=== PATIENT | female | born 1945 | race Caucasian/White ===

== ENCOUNTER 2016-12-03 08:17 | Inpatient (IN) | payer MEDICARE ==
[2016-12-03] VITALS (13 sets, daily range): BP systolic 103–170; BP diastolic 51–99; PULSE 71–100; RESP 14–26; O2SAT 88–97
[~2016-12-03] VITALS: Ht 162.6 cm; Wt 79.8 kg
--- NOTE | 2016-12-03 08:37 | ED.REPORT ---
HPI-Dyspnea / Wheezing Date of Service Dec 03, 2016 ED Provider: Nathan Fine MD The pt is a 71 y/o female w/ a hx of HTN and pneumonia presenting to the ED complaining of SOB onset two days ago. She was walking her dog and was only able to make it a portion of a block before she had to stop. She is also experiencing upper back "pressure", nausea, vomiting, chronic cough, and intermittent sweating and chills depending on how hard she is coughing. Sitting up, leaning forward, and breathing through her mouth allows her to breathe more easily. She is a smoker and does not use an inhaler or nebulizer. Denies chest pain, fevers, or peripheral edema. Nursing Notes Stated Complaint: DIFFICULTY BREATHING Nursing Notes Reviewed: Yes ([facility] not reconciled) Allergies: Coded Allergies: No Known Allergies (Unverified , 12/03/16) Scheduled Amlodipine (Amlodipine) 5 Mg Tablet 5 MG PO DAILY Aspirin (Aspirin) 81 Mg Tablet 81 MG PO DAILY Hydrochlorothiazide (Hydrochlorothiazide) 25 Mg Tablet 25 MG PO DAILY Lisinopril (Lisinopril) 40 Mg Tablet 40 MG PO DAILY Lovastatin (Lovastatin) 40 Mg Tablet 40 MG PO HS Metformin (Metformin) 500 Mg Tablet 500 MG PO BID Metoprolol Tartrate (Metoprolol Tartrate) 100 Mg Tablet 100 MG PO BID Omeprazole Magnesium (Prilosec Otc) 20 Mg Tablet.dr 20 MG PO DAILY General Time Seen by MD: 08:36 Chief Complaint Shortness of breath Hx Obtained From: Patient Arrived By: Walk-in Sudden in Onset?: Yes Onset Occurred: 2 days ago Symptom Duration: Since onset Recent Healthcare: No recent doctor visit, No recent hospitalization Similar Sx Previous: No Past Medical History Past Medical History Notes: Medication list: Metformin 500 mg daily Metoprolol tartrate 100 mg 2 times a day Lovastatin 40 mg daily Amlodipine 5 mg daily Lisinopril 40 mg daily Hydrochlorothiazide 25 mg daily Prilosec daily Aspirin 81 mg daily Past Medical History Ykj-[id number] diabetes Hypertension Hyperlipidemia Mild GERD Past Surgical History Denies: Gastric bypass, Pacemaker insertion Smoking History Current Every Day Smoker Social History Alcohol Use: "Social" Drug Use: Denies drug use Ambulatory Status Independent Review of Systems Constitutional: Reports: Chills, Denies: Fever Respiratory: Reports: Non-productive cough, Shortness of breath Cardiovascular: Denies: Chest pain, Edema Musculoskeletal: Reports: Back pain ("pressure") Skin: Reports Diaphoresis Complete sys rev & neg: except as marked. GI: Reports: Nausea, Vomiting Physical Exam Initial Vital Signs Vital Signs (First) Date Time Temp Pulse Resp B/P Pulse Ox O2 Delivery O2 Flow Rate FiO2 12/03/16 08:41 37.0 72 22 170/89 88 Room Air 12/03/16 09:01 3 Initial VS: Reviewed, Unavailable (none on chart, ordered) Head / Eyes: Atraumatic, Normocephalic, PERRL Abdomen / GI: Soft, Non-tender, No guarding, No rebound, No distention Back: No CVA tenderness Extremities: Vascular intact, Neuro intact, No swelling, No tenderness Skin: Warm, Dry, No cyanosis Neurologic: Alert, Oriented, Nonfocal Psychiatric: Mood/affect normal, Behavior normal, Normal thought content General/Constitutional: Awake, Alert Neck: Atraumatic, Supple, Full range of motion Respiratory / Chest: No chest tenderness, No chest wall deformity dyspneic at rest bronchospasms worse on right hacking cough Cardiovascular: Regular rhythm, Heart sounds NL Heart Rate / Rhythm: Positive: Tachycardia (Mild ) No peripheral edema ENT: Airway patent Interpretation & Diagnostics Lab Results Interpretation Result Diagram: 12/03/16 0835 12/03/16 0835 Test 12/03/16 08:35 White Blood Count 10.9th/mm3 (3.8-10.1) Red Blood Count 5.28mil/mm3 (3.90-5.20) Hemoglobin 14.8g/dL (12.0-15.6) Hematocrit 44.8% (35.0-46.0) Mean Corpuscular Volume 84.8fL (81-100) Mean Corpuscular Hemoglobin 28.0pg (27.0-35.0) Mean Corpuscular Hemoglobin Concent 33.0% (32.0-37.0) Red Cell Distribution Width 13.4% (12.3-15.4) Platelet Count 295bil/L (150-400) Neutrophils (%) (Auto) 68.7% (40-74) Lymphocytes (%) (Auto) 20.1% (14-46) Monocytes (%) (Auto) 8.3% (4-12) Eosinophils (%) (Auto) 2.2% (0-5) Basophils (%) (Auto) 0.6% (0-3) Hold Blue Top Tube Received (Received) Sodium Level 130mEq/L (134-144) Potassium Level 4.0mEq/L (3.5-5.2) Chloride Level 94mEq/L (97-108) Carbon Dioxide Level 20mmol/L (18-29) Blood Urea Nitrogen 12mg/dL (8-27) Creatinine 0.56mg/dL (0.57-1.00) Estimat Glomerular Filtration Rate 152mL/min (>59) Glucose Level 153mg/dL (60-99) Calcium Level 9.6mg/dL (8.5-10.1) Total Bilirubin 0.4mg/dL (0.0-1.2) Aspartate Amino Transf (AST/SGOT) 17U/L (0-50) Alanine Aminotransferase (ALT/SGPT) 15U/L (0-32) Alkaline Phosphatase 89U/L (25-165) Troponin T 0.010ug/L (0.0-0.011) Pro-B-Type Natriuretic Peptide 83.52pg/mL (0-301) Total Protein 8.0g/dL (6.4-8.4) Albumin 3.9g/dL (3.4-5.0) Hold Red Top Tube Received (Received) Hold [place] Top Tube Received (Received) Hold [place] Top Tube Received (Received) Lab Results Interpretation: CBC marginal leukocytosis CMP normal Blood cultures 2 pending Troponin negative BNP negative ECG Interpretation ECG Interpretation: Normal sinus rhythm rate of 70, no ischemic or dysrhythmic findings Time: 08:57 Interpreted by: ED physician X-Ray Chest Interpretation Chest Xray Interpretation: Impression: No acute findings View: Portable, 1 view Interpretation / Wet Read by: Wet read ED physician Re-Eval/Medical Decision Med Decision/Clinical Course This is a 71-year-old female lifelong smoker presents with increasing shortness of breath cough, and possible respiratory infection. She has not had definite fever, but reports chills and increasing shortness of breath she has noticed since Sunday. She has had increasing dyspnea on exertion, but also dyspnea at rest, has had to sleep up right, and has coughing and wheezing-both of which are new. She has never carried a diagnosis of asthma or COPD in the past, and has not been on nebulizer respiratory therapy. On exam the patient's clinically bronchospastic, slightly worse on the right with a hacking cough. She is tachypneic and dyspneic, but not hypoxic. She has no edema the legs, no findings of DVT/venous thromboembolism are evident on clinical exam. A portable chest x-ray is negative for lucila infiltrate. Given the profound bronchospasm and dyspnea the patient is treated with albuterol, Atrovent, steroids with some improvement. However she remains persistently bronchospastic , and persistently symptomatic with inadequate improvement to allow discharge. Lab work is fairly unremarkable, trace, nonspecific leukocytosis. Troponin, EKG , BNP are negative. The patient's very low probability for pulmonary embolism. Her coverage for pneumonia despite initial negative radiographs is being provided given the underlying concern for COPD, first time diagnosis-'s of the patient's receiving ceftriaxone and azithromycin. Patient is being admitted for continued management. Source of Hx: Old records Differential Diagnosis: Positive: COPD exacerbation, Negative: Acute coronary syndrome, Congestive heart failure, Dysrhythmia, Hypertensive emergency, Pneumothorax, Pulmonary embolism, Respiratory failure Discharge & Departure Impression: Primary Impression: Acute exacerbation of chronic obstructive pulmonary disease Disposition: ADMITTED TO HOSPITAL Discharge Condition All VS Reviewed: Yes Condition: Stable Referrals: James Wilson (PCP) Scribe Attestation Portions of this note were transcribed by Juan Antonio Zhong. I, Dr. Fine personally performed the history, physical exam and medical decision-making; I reviewed and confirmed the accuracy of the information in the transcribed note. Signed by : Faye Worrell, 12/03/16 and 1105. copies to: James Wilson Matthew F MD Dec 03, 2016 08:37 Juan Antonio Zhong Dec 03, 2016 11:02
[2016-12-03] MEDS ORDERED: Albuterol 2.5 mg/3 mL Inhalation Solution NEB ONE ×2 (08:50→10:05)
[2016-12-03] MEDS ORDERED: MethylprednisoLONE Sodium Succinate 62.5 mg/mL 2 mL Inj IVPUSH ONE (08:50)
[2016-12-03] MEDS ORDERED: Ipratropium 0.02% 0.5 mg/2.5 mL Inhalation Solution NEB ONE (08:50)
[2016-12-03 09:16] LABS: BASOPHILS % (AUTO) 0.6 % (0-3); EOSINOPHILS % (AUTO) 2.2 % (0-5); MONOCYTES % (AUTO) 8.3 % (4-12); Mean Corpuscular Volume 84.8 fL (81-100); NEUTROPHILS % (AUTO) 68.7 % (40-74); Platelet Count 295 bil/L (150-400)
--- NOTE | 2016-12-03 09:30 | DRSVH ---
PROCEDURE: X-RAY CHEST ONE VIEW, PORTABLE ([id number]) INDICATIONS: dyspnea TECHNIQUE: One view of the chest was acquired. COMPARISON: None. FINDINGS: Surgical changes and devices: There is external nonrebreather mass projecting over the left apex limi ting evaluation.. Lungs and pleura: No pleural effusions or pneumothorax. Visualized lungs are clear. Mediastinum: Mediastinal contours appear normal. Heart size is normal. Bones and chest wall: No suspicious bony lesions. Overlying soft tissues appear unremarkable. IMPRESSION: 1. No definite acute cardiopulmonary disease. Evaluation of the left apex limited by the overlying nonrebreather mask. Dictated by: Jarred Larson M.D. on 12/03/2016 at 9:20 Approved by: Jarred Larson M.D. on 12/03/2016 at 9:23
[2016-12-03 09:41] LABS: TROPONIN T 0.01 ug/L (0.0-0.011)
[2016-12-03] MEDS ORDERED: cefTRIAXone Inj 2,000 MG in Dextrose 5% Minibag Plus 50 ML IV ONE (10:35)
[2016-12-03] MEDS ORDERED: Azithromycin Inj 500 MG in Dextrose 5% w/Vial Mate 250 ML IV ONE (10:35)
[2016-12-03] MEDS ORDERED: 0.9% Sodium Chloride 1,000 ML IV SCH (12:01)
[2016-12-03] MEDS ORDERED: Ondansetron 2 mg/mL 2 mL Inj IVPUSH PRN ×2 (12:05→17:35)
[2016-12-03] MEDS ORDERED: Alum-Mag Hydrox-Simeth 30 mL Suspension PO PRN ×2 (12:05→17:35)
[2016-12-03 12:30] LABS: APPEARANCE,URINE CLEAR (CLEAR,HAZY); COLOR,URINE YELLOW (YELLOW); OCCULT BLOOD,URINE NEGATIVE (NEGATIVE); UROBILINOGEN,URINE NORMAL (NORMAL)
[2016-12-03] MEDS ORDERED: OMEP20TA24 PO (12:50)
[2016-12-03] MEDS ORDERED: METO100T3 PO (12:50)
[2016-12-03] MEDS ORDERED: HYDR25TA4 PO (12:50)
[2016-12-03] MEDS ORDERED: LISI40TA PO (12:50)
[2016-12-03] MEDS ORDERED: METF500T4 PO (12:50)
[2016-12-03] MEDS ORDERED: LOVA40TA PO (12:50)
[2016-12-03] MEDS ORDERED: ASPI-973 PO (12:50)
[2016-12-03] MEDS ORDERED: AMLO5TAB2 PO (12:50)
--- NOTE | 2016-12-03 15:22 | NUR ---
Admit: Patient arrived to [facility] via stretcher @ approx 1230. Transferred from stretcher to bed. Patient complains of shortness of breath and appears to be short of breath, O2 via NC @ 3L. VSS. IV antibiotics infusing. Alert & oriented. Denies pain, nausea. Bed in low and locked position, bed rails up x 2, oriented to room and call light system, call light within reach. Medication reconciliation completed. Telemetry #50 on, ST 100s, 70s-100s per television actor.
[2016-12-03] MEDS ORDERED: Polyethylene Glycol (PEG) 17 Gm Powder PO PRN (17:35)
[2016-12-03] MEDS ORDERED: Dextrose 10% 250 ML IV PRN (17:35)
[2016-12-03] MEDS ORDERED: HYDROcodone-APAP 5-325 mg Tablet PO PRN (17:35)
--- NOTE | 2016-12-03 17:55 | PCM.HPMED ---
Subjective Date of Service Dec 03, 2016 Primary Provider: Admitting Physician: Ann Barnett MD Primary Care Physician: Nick Avalos DO Attending Physician: Ann Barnett MD Chief Complaint: shortness of breath History of Present Illness: 71 y/o female w/ a hx of HTN and long standing and current cigarette smoking presents today with complaint of ongoing and worsening shortness of breath over the past 2 days. She first noticed her symptoms 2 days ago on Sunday when walking her dog and was only able to make it a portion of a block before she had to stop in order to catch her breath. Her shortness of breath has been getting worse and today she was having a hard time catching her breath just going to the bathroom and so decided to present to the hospital. She has chronic cough but it has been more productive of greenish to clear sputum over the past week or so. She tried to smoke yesterday but became quite nauseous and vomited once and so has not been able to smoke her regular pack/day for past couple of days. She has also noted increased wheezing with her shortness of breath and cough. She otherwise denies any chest pain, palpitations, lightheadedness, orthopnea, paroxysmal nocturnal dyspnea, weight gain, lower extremity edema or pain in her calf or legs. She denies any sick contacts or recent travel. She was recently diagnosed with diabetes and is currently on Metformin. 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 In the ED her lung exam was reported as notable for significant wheezing and as a result she received a dose IV Solu-Medrol and nebulizer treatment. Review of Systems: Constitutional: Negative, except as otherwise mentioned in the history above. Ophthalmologic: Negative, except as otherwise mentioned in the history above. Cardiovascular: Negative, except as otherwise mentioned in the history above. Respiratory: Negative, except as otherwise mentioned in the history above. Gastrointestinal: Negative, except as otherwise mentioned in the history above. Genitourinary: Negative, except as otherwise mentioned in the history above. Musculoskeletal: Negative, except as otherwise mentioned in the history above. Neurological: Negative, except as otherwise mentioned in the history above. Psychiatric: Negative, except as otherwise mentioned in the history above. Hematologic/Lymphatic: Negative, except as otherwise mentioned in the history above. Allergic/Immunologic: Negative, except as otherwise mentioned in the history above. Allergies Coded Allergies: No Known Allergies (Unverified , 12/03/16) Home Medications Amlodipine (Amlodipine) 5 Mg Tablet 5 MG PO DAILY Aspirin (Aspirin) 81 Mg Tablet 81 MG PO DAILY Hydrochlorothiazide (Hydrochlorothiazide) 25 Mg Tablet 25 MG PO DAILY Lisinopril (Lisinopril) 40 Mg Tablet 40 MG PO DAILY Lovastatin (Lovastatin) 40 Mg Tablet 40 MG PO HS Metformin (Metformin) 500 Mg Tablet 500 MG PO BID Metoprolol Tartrate (Metoprolol Tartrate) 100 Mg Tablet 100 MG PO BID Omeprazole Magnesium (Prilosec Otc) 20 Mg Tablet.dr 20 MG PO DAILY PMH Zqo-chjfmes-gcguubxcl diabetes Hypertension Hyperlipidemia Mild GERD Family History Diabetes in parents. Mother was a smoker and from pneumonia. A younger brother has coronary artery disease Social History Hx Alcohol Use: No Hx Substance Use: No Hx Tobacco Use: Yes Smoking Status: Current Every Day Smoker (1 ppd) Exam Vital Signs Vital Sign - Last Date Time Temp Pulse Resp B/P Pulse Ox O2 Delivery O2 Flow Rate FiO2 12/03/16 17:25 36.8 100 20 139/51 92 Nasal Cannula 2.00 General: Alert, Oriented X3, Cooperative, No Acute Distress Head: Normal Eyes: PERRLA, EOMI, Scleral Anicteric Nose: Mucous Membr Moist/[place] Mouth: Mucous Membr Moist/[place] Neck: Supple Chest & Lungs: Chest Wall Normal, Other (only very mild bilateral expiratory wheezes) Cardiovascular: Regular Rate/Rhythm Pulses: NL carotid, radial, femoral, DP, PT Abdomen: Non-tender, Non-distended, Normoactive bowel tones, Soft Extremities: No cyanosis/clubbing/edma bilat Skin: Other (no ulcer/rash) Neurological: Grossly Neurologically Intact, Cranial Nerves 2-12 Intact, Normal Speech Lymphatic: Other Lymph Nodes (no significant lymphadenopathy) Lab and Diagnostics Result Diagram: 12/03/1683412/03/16834 X-Rays, CTs and MRIs Date of Service: 12/03/16 0840 PROCEDURE: X-RAY CHEST ONE VIEW, PORTABLE ([id number]) IMPRESSION: 1. No definite acute cardiopulmonary disease. Evaluation of the left apex limited by the overlying nonrebreather mask. Dictated by: Jarred Larson M.D. on 12/03/2016 at 9:20 Approved by: Jarred Larson M.D. on 12/03/2016 at 9:23 Assessment & Plan 71 y/o female w/ a hx of HTN and long standing and current cigarette smoking presents today with complaint of ongoing and worsening shortness of breath over the past 2 days. # Acute shortness of breath with associated acute hypoxemia on room air, present on admission. - Strongly suspect underlying COPD in this long-time and ongoing smoker though not officially diagnosed in the past and now with acute COPD exacerbation on presentation - DuoNeb treatment qidwa - Will hold off on further IV steroid for now given lungs sound fairly clear on exam right now - Check respiratory PCR and rule out acute viral bronchitis as cause of presenting symptoms - Check Echo to rule out cardiac etiology for her reported dyspnea on exertion # History of hypertension. - Currently normotensive - Resume home BP Meds in am # History of diabetes mellitus - Hold Metformin - ISS while inpatient - HgA1C # History of hyperlipidemia - Continue with home statin # History of GERD, presumed stable - Continue with home dose PPI # Acute hyponatremia. present on admission - Likely due to dehydration - Followup repeat BMP in am after having received IVF in the ED Expected length of hospital stay is greater than 2 midnights and likely 2-3 days GI Prophylaxis: Proton Pump Inhibitor VTE Prophylaxis: Sub-Q Heparin (Unfractionated) VTE Mechanical Devices: Intermittant Pneumatic CD Resuscitation Status: DNR/DNI:Do Not Resuscitate/Intubate (discussed and verified with the patient) Time spent 60 min Huber Merino Dec 03, 2016 17:55
[2016-12-03] MEDS: Pantoprazole 20 mg ER24 Tablet PO SCH (18:11)
[2016-12-03] MEDS: Insulin Human REGular 300 Unit/3 mL Inj SUBQ SCH (21:05)
[2016-12-04] VITALS (11 sets, daily range): BP systolic 136–159; BP diastolic 64–85; PULSE 70–89; RESP 20–24; O2SAT 90–94
[2016-12-04] MEDS: Heparin 5,000 Unit/mL Inj SUBQ SCH ×3 (00:26→17:21)
--- NOTE | 2016-12-04 01:33 | NUR ---
O2 Pt on 2 L O2, pulse ox at 88%, turned up O2 to 3L. Pt sat at 92%. SOB with exertion, will monitor. Pt alert and oriented x 3.
[2016-12-04] MEDS: Pantoprazole 20 mg ER24 Tablet PO SCH (05:45)
[2016-12-04] MEDS: Albuterol-Ipratropium 3 mL Inhalation Solution NEB SCH ×3 (06:00→16:39)
[2016-12-04 06:53] LABS: BASOPHILS % (AUTO) 0 % (0-3); EOSINOPHILS % (AUTO) 0.1 % (0-5); MONOCYTES % (AUTO) 8.6 % (4-12); Mean Corpuscular Hemoglobin 28.2 pg (27.0-35.0); Mean Corpuscular Volume 84.4 fL (81-100); NEUTROPHILS % (AUTO) 80.8 % (40-74); Platelet Count 273 bil/L (150-400)
[2016-12-04 07:05] LABS: D-Dimer 2.12 mg/L FEU (<0.50); INR 0.98 ratio
[2016-12-04] MEDS: Insulin Human REGular 300 Unit/3 mL Inj SUBQ SCH ×4 (07:27→22:50)
[2016-12-04 07:33] LABS: Magnesium 1.6 mg/dL (1.6-2.6)
[2016-12-04] MEDS: MethylprednisoLONE Sodium Succinate 40 mg/mL Inj IVPUSH SCH ×2 (09:29→17:22)
--- NOTE | 2016-12-04 11:52 | NUR ---
Social Work-initial assessment: Data:See initial assessment. Pt is a 71 y/o female who was admitted on 12/03/16 for COPD exac per H&P. Pt's insurance is [employer] and PCP is Ly Avalos DO. EMR Reviewed. Pt's readmission score is 4-high risk. SW met with pt to discuss discharge planning, SW role explained. Pt is alert and oriented x3. Pt resides at home alone where she remains independent with ADLS. Pt drives and does not use any DME. Pt has no HH or SNF history. Pt has no [facility] care insurance or [facility] benefits. SW discussed DPOA/advanced directive, pt confirms she has completed this, SW encouraged a copy to be brought in. Pt confirms that her son Manan will provide transport at discharge. SW provided phone number and plan on white board in room. No anticipated discharge needs. SW will continue to follow if needs arise. Assessment:Pt who is independent at baseline. Plan:Pt to likely to discharge home when medically stable via POV. No anticipated discharge needs. SW will continue to follow if needs arise. FRANKLYN Blackmon Addendum: 12/04/16 at 1156 by STEFF BEAR Amended: Links added.
--- NOTE | 2016-12-04 12:35 | NUR ---
Off Unit: Patient transported to [facility] @ approx 1230 via wheelchair accompanied by transporter. magnetic resonance technologist notified. No apparent distress at time of transport.
--- NOTE | 2016-12-04 13:09 | DRSVH ---
PROCEDURE: CT ANGIO CHEST PULMONARY EMBOLISM ([id number]) INDICATIONS: 71 year-old female with shortness of breath. TECHNIQUE: After the administration of intravenous contrast, 2 mm thick sections acquired from the pulmonary api ronny to the posterior costophrenic angles. 3-dimensional maximum intensity projection (MIP) coronal a nd sagittal reformats were then acquired through the thorax. For radiation dose reduction, the follo wing was used: automated exposure control, adjustment of mA and/or kV according to patient size. COMPARISON: , CR, XR CHEST 1VW (PORTABLE), 12/03/2016, 8:53. FINDINGS: Image quality: Excellent. Pulmonary arteries: Pulmonary arteries are normal in size, and demonstrate no intraluminal filling d efects to suggest central pulmonary embolism. Lungs and pleura: No acute air space opacities. Bilateral upper lobe clustered micronodular opacities are noted in a tree in bud pattern on coronal reformatted images. No pleural effusions or pneumothor ax. Central and peripheral airways are patent. Mediastinum: Heart size is normal, without pericardial effusion. Enlarged pre-carinal lymph node me asures 1.4 cm in short axis dimensions. No additional mediastinal or hilar adenopathy by CT size crit eria. Thoracic aorta is normal in caliber and enhancement. Esophagus is normal in caliber, without hiatal hernia. Bones and chest wall: No suspicious bony lesions. Ribs and thoracic spine appear intact throughout. Thyroid gland is normal in size. No axillary or supraclavicular adenopathy. On axial image 58, th ere is asymmetric 1.6 cm soft tissue density within the lateral left breast. Abdomen: Visualized upper abdominal solid organs appear normal in the early arterial phase of enhanc ement. IMPRESSION: 1. No evidence for central pulmonary embolism. 2. Bilateral lateral upper lobe clustered micronodular opacities, in a pattern suggestive of early in fectious bronchiolitis. 3. Solitary enlarged precarinal mediastinal lymph node, a nonspecific finding. 4. Asymmetric 1.6 cm nodular soft tissue density within the lateral left breast may reflect underlyin g mass lesion. When clinically feasible, recommend outpatient bilateral diagnostic mammography with p ossible left breast ultrasound for further evaluation. Dictated by: John Denise M.D. on 12/04/2016 at 11:58 Approved by: John Denise M.D. on 12/04/2016 at 12:07
--- NOTE | 2016-12-04 15:45 | PCM.PNMED ---
Subjective Date of Service Dec 04, 2016 Subjective Reports continued shortness of breath and cough Exam Vital Signs Vital Sign - Last Date Time Temp Pulse Resp B/P Pulse Ox O2 Delivery O2 Flow Rate FiO2 12/04/16 13:18 70 12/04/16 12:59 24 90 Nasal Cannula 4.00 12/04/16 09:31 36.8 136/85 Intake and Output 12/03/16 12/03/16 12/04/16 Cumulative From/Thru 15:00 23:00 07:00 12/03/16 08:41 - 12/04/16 06:32 Intake Total 238 ml 1550 ml 250 ml 2038 ml Output Total 800 ml 800 ml Balance 238 ml 1550 ml -550 ml 1238 ml Intake Oral 1000 ml 250 ml 1250 ml IV Total 238 ml 550 ml 788 ml Output Urine Total 800 ml 800 ml # Voids 2 2 # Bowel Movements 1 1 Exam General: Alert, Oriented X3, Cooperative, No Acute Distress Head: Normal Eyes: PERRLA, EOMI, Scleral Anicteric Nose: Mucous Membr Moist/[place] Mouth: Mucous Membr Moist/[place] Neck: Supple Chest & Lungs: Chest Wall Normal, Moderate bilateral inspiratory/expiratory wheezes (much worse than admission day) Cardiovascular: Regular Rate/Rhythm Pulses: NL carotid, radial, femoral, DP, PT Abdomen: Non-tender, Non-distended, Normoactive bowel tones, Soft Extremities: No cyanosis/clubbing/edema bilat Neurological: Grossly Neurologically Intact, Cranial Nerves 2-12 Intact, Normal Speech IVs and Medications Medications Reviewed: Medications were reviewed in detail Lab and Diagnostics Result Diagram: 12/04/16 0620 12/04/16 0620 X-Rays, CTs and MRIs Date of Service: 12/03/16 0840 PROCEDURE: X-RAY CHEST ONE VIEW, PORTABLE ([id number]) IMPRESSION: 1. No definite acute cardiopulmonary disease. Evaluation of the left apex limited by the overlying nonrebreather mask. Dictated by: Jarred Larson M.D. on 12/03/2016 at 9:20 Approved by: Jarred Larson M.D. on 12/03/2016 at 9:23 Date of Service: 12/04/16 0842 PROCEDURE: CT ANGIO CHEST PULMONARY EMBOLISM ([id number]) IMPRESSION: 1. No evidence for central pulmonary embolism. 2. Bilateral lateral upper lobe clustered micronodular opacities, in a pattern suggestive of early infectious bronchiolitis. 3. Solitary enlarged precarinal mediastinal lymph node, a nonspecific finding. 4. Asymmetric 1.6 cm nodular soft tissue density within the lateral left breast may reflect underlying mass lesion. When clinically feasible, recommend outpatient bilateral diagnostic mammography with possible left breast ultrasound for further evaluation. Dictated by: John Denise M.D. on 12/04/2016 at 11:58 Approved by: John Denise M.D. on 12/04/2016 at 12:07 Assessment & Plan 71 y/o female w/ a hx of HTN and long standing and current cigarette smoking presents today with complaint of ongoing and worsening shortness of breath over the past 2 days. # Acute shortness of breath with associated acute hypoxemia on room air, present on admission. - Strongly suspect underlying COPD in this long-time and ongoing smoker though not officially diagnosed in the past and now with acute COPD exacerbation on presentation - DuoNeb treatment qidwa - IV Solu-Medrol tid - Followup pending Echo to rule out cardiac etiology for her reported dyspnea on exertion - CTA chest without PE # Acute Rhinovirus bronchitis, present on admission. Ongoing - Continue with supportive care # History of hypertension. - Currently normotensive - Continue home BP Meds # History of diabetes mellitus - Hold Metformin - ISS while inpatient - HgA1C # History of hyperlipidemia - Continue with home statin # History of GERD, presumed stable - Continue with home dose PPI # Acute hyponatremia. present on admission - Likely due to dehydration and HCTZ - Hold HCTZ - Followup repeat BMP Dispo: 1-2 days GI Prophylaxis: Proton Pump Inhibitor VTE Prophylaxis: Sub-Q Heparin (Unfractionated) VTE Mechanical Devices: Intermittant Pneumatic CD Resuscitation Status: DNR/DNI:Do Not Resuscitate/Intubate (discussed and verified with the patient) Huber Merino Dec 04, 2016 15:45
--- NOTE | 2016-12-04 16:47 | DRSVH ---
[facility] [address] [place] [address] Echocardiogram Report Name: NING WATTERS Date: 12/04/2016 Height: 64 in Hospital Exam Location: [facility] Weight: 175 lb Gender: Female BSA: 1.8 m2 : 1945 Age: 71 yrs BP: 158/64 mmHg Reason For Study: Dyspnea on exertion Ordering Physician: Performed By: Rubi COPELANDIST [facility] Interpretation Summary There is normal left ventricular wall thickness. The ejection fraction is estimated to be 60-65%. Assessment of diastolic parameters indicates a relaxation abnormality of the left ventricle, consistent with normal filling pressures. There is no significant valvular heart disease. Procedure: A two-dimensional transthoracic echocardiogram with color flow and Doppler was performed. The study quality was technically adequate. Most of the acoustic windows were suboptimal, but the best imaging was obtained from the apical window. There is no prior echocardiogram noted for this patient. The patient was in normal sinus rhythm during the exam. Left Ventricle: The left ventricle is normal in size. There is normal left ventricular wall thickness. The ejection fraction is estimated to be 60-65%. There are no focal wall motion abnormalities. Assessment of diastolic parameters indicates a relaxation abnormality of the left ventricle, consistent with normal filling pressures. Right Ventricle: The right ventricle is normal in size and function. Atria: Both atria are normal in size. There is no Doppler evidence for an interatrial shunt. Mitral Valve: The mitral valve leaflets are slightly calcified. There is trace mitral regurgitation. Aortic Valve: The aortic valve is not well visualized. There is no hemodynamically significant valvular aortic stenosis. No aortic regurgitation is present. Tricuspid Valve: The tricuspid valve is not well visualized, but is grossly normal. Pulmonary artery pressures cannot be estimated because of the lack of a measurable TR jet velocity. Pulmonic Valve: The pulmonic valve is not well visualized. There is a trace or physiologic amount of pulmonic regurgitation. Great Vessels: The aortic root is normal size. The ascending aorta is normal in size. The aortic arch could not be visualized. The IVC is of normal diameter and collapses less than 50% with a sniff. This suggests a right atrial pressure of 8 mm Hg. Pericardium/ Pleura There is an anterior echo-free space consistent with a fat pad. There is no pericardial effusion. MMode/2D Measurements & Calculations LVIDd: 4.5 cm LA dimension RA long axis LVOT diam EPSS: 0.16 cm IVSd: 0.89 cm LA A2 area RA area Ao root diam LVPWd: 0.81 cm : 16.3 cm asc Aorta Diam LA A4 area RA vol: 40.4 ml RA LA length (vol) : 21.9 mm2 LA vol: 47.6 ml LA vol index IVC diam: 2.1 cm LV calderon. diameter/BSA RVD1 (basal) TAPSE: 2.7 cm (cm/m^2): 2.4 Doppler Measurements & Calculations Ao V2 max MV E max addison MV E/A: 0.81 PA V2 max : 210.2 cm/sec : 99.4 cm/sec Med Peak E' Addison : 97.3 cm/sec Ao max PG MV A max addison PA mean PG : 17.7 mmHg : 122.0 cm/sec E/E' med: 13.1 Ao mean PG MV P1/2t: 54.2 msec Lat Peak E' Addison PA Accel Time : 0.13 sec LVOT Max Addison E/E' lat: 13.0 : 152.7 cm/sec E/e' average NIKOLAI(I,D): 1.5 cm sev ratio MV dec time MV P1/2t max addison Ao V2 mean LV V1 max PG : 0.19 sec : 148.1 cm/sec MVA(P1/2t): 4.1 cm2 Ao V2 VTI: 44.8 cm LV V1 VTI NIKOLAI(V,D): 1.6 cm2 : 30.2 cm PA V2 mean NIKOLAI indexed to BSA : 64.8 cm/sec (cm^2/m^2): 0.79 Electronically signed by: Joshua Viera on Reading Physician:12/04/2016 04:46 PM
[2016-12-04] MEDS ORDERED: Albuterol-Ipratropium 3 mL Inhalation Solution NEB SCH (20:30)
[2016-12-05] VITALS (12 sets, daily range): BP systolic 120–164; BP diastolic 61–80; PULSE 58–88; RESP 19–24; O2SAT 87–96
[2016-12-05] MEDS: Heparin 5,000 Unit/mL Inj SUBQ SCH ×3 (00:10→16:53)
[2016-12-05] MEDS: MethylprednisoLONE Sodium Succinate 40 mg/mL Inj IVPUSH SCH ×2 (00:10→07:34)
--- NOTE | 2016-12-05 02:10 | NUR ---
activity Pt remained in room for the shift, alert and oriented x 4, pleasant and cooperative. No complaints of pain or discomfort, continues to be SOB with exertion, on 3L O2 nc. Given 60 mg solu medrol, pt sleeping well at this time, will continue to monitor.
[2016-12-05] MEDS: Pantoprazole 20 mg ER24 Tablet PO SCH (06:00)
[2016-12-05] MEDS: Insulin Human REGular 300 Unit/3 mL Inj SUBQ SCH ×4 (07:34→20:49)
[2016-12-05] MEDS: Albuterol-Ipratropium 3 mL Inhalation Solution NEB SCH ×4 (08:16→20:54)
[2016-12-05] MEDS: predniSONE 20 mg Tablet PO SCH (13:59)
--- NOTE | 2016-12-05 14:20 | NUR ---
CEFERINO signed @ 1124 AM
--- NOTE | 2016-12-05 16:06 | PCM.PNMED ---
Subjective Date of Service Dec 05, 2016 Subjective says feeling "much better" than yesterday Exam Vital Signs Vital Sign - Last Date Time Temp Pulse Resp B/P Pulse Ox O2 Delivery O2 Flow Rate FiO2 12/05/16 14:08 Supplement Oxygen 12/05/16 13:19 36.3 73 20 149/66 91 3.00 Intake and Output 12/04/16 12/04/16 12/05/16 Cumulative From/Thru 15:00 23:00 07:00 12/03/16 08:41 - 12/05/16 06:06 Intake Total 1111 ml 200 ml 3349 ml Output Total 1000 ml 800 ml 2600 ml Balance 111 ml -600 ml 749 ml Intake Oral 1111 ml 200 ml 2561 ml IV Total 788 ml Output Urine Total 1000 ml 800 ml 2600 ml # Voids 2 # Bowel Movements 0 0 1 Exam General: Alert, Oriented X3, Cooperative, No Acute Distress Head: Normal Eyes: PERRLA, EOMI, Scleral Anicteric Nose: Mucous Membr Moist/[place] Mouth: Mucous Membr Moist/[place] Neck: Supple Chest & Lungs: Chest Wall Normal, Mild bilateral inspiratory/expiratory wheezes (much improved than yesterday) Cardiovascular: Regular Rate/Rhythm Pulses: NL carotid, radial, femoral, DP, PT Abdomen: Non-tender, Non-distended, Normoactive bowel tones, Soft Extremities: No cyanosis/clubbing/edema bilat Neurological: Grossly Neurologically Intact, Cranial Nerves 2-12 Intact, Normal Speech IVs and Medications Medications Reviewed: Medications were reviewed in detail Lab and Diagnostics Result Diagram: 12/04/1661912/04/16 0620 X-Rays, CTs and MRIs Date of Service: 12/03/16 0840 PROCEDURE: X-RAY CHEST ONE VIEW, PORTABLE ([id number]) IMPRESSION: 1. No definite acute cardiopulmonary disease. Evaluation of the left apex limited by the overlying nonrebreather mask. Dictated by: Jarred Larson M.D. on 12/03/2016 at 9:20 Approved by: Jarred Larson M.D. on 12/03/2016 at 9:23 Date of Service: 12/04/16 0842 PROCEDURE: CT ANGIO CHEST PULMONARY EMBOLISM ([id number]) IMPRESSION: 1. No evidence for central pulmonary embolism. 2. Bilateral lateral upper lobe clustered micronodular opacities, in a pattern suggestive of early infectious bronchiolitis. 3. Solitary enlarged precarinal mediastinal lymph node, a nonspecific finding. 4. Asymmetric 1.6 cm nodular soft tissue density within the lateral left breast may reflect underlying mass lesion. When clinically feasible, recommend outpatient bilateral diagnostic mammography with possible left breast ultrasound for further evaluation. Dictated by: John Denise M.D. on 12/04/2016 at 11:58 Approved by: John Denise M.D. on 12/04/2016 at 12:07 Assessment & Plan 71 y/o female w/ a hx of HTN and long standing and current cigarette smoking presents today with complaint of ongoing and worsening shortness of breath over the past 2 days. # Acute shortness of breath with associated acute hypoxemia on room air, present on admission. - Strongly suspect underlying COPD in this long-time and ongoing smoker though not officially diagnosed in the past and now with acute COPD exacerbation on presentation - DuoNeb treatment qidwa - IV Solu-Medrol change to PO Prednisone on 12/05 - Echo unremarkable - CTA chest without PE # Acute Rhinovirus bronchitis, present on admission. Ongoing - Continue with supportive care # History of hypertension. - Currently normotensive - Continue home BP Meds # History of diabetes mellitus - Hold Metformin - ISS while inpatient - HgA1C # History of hyperlipidemia - Continue with home statin # History of GERD, presumed stable - Continue with home dose PPI # Acute hyponatremia. present on admission - Likely due to dehydration and HCTZ - Hold HCTZ - Followup repeat BMP # CTA chest notable for: "4. Asymmetric 1.6 cm nodular soft tissue density within the lateral left breast may reflect underlying mass lesion. When clinically feasible, recommend outpatient bilateral diagnostic mammography with possible left breast ultrasound for further evaluation." Dispo: 1-2 days GI Prophylaxis: Proton Pump Inhibitor VTE Prophylaxis: Sub-Q Heparin (Unfractionated) VTE Mechanical Devices: Intermittant Pneumatic CD Resuscitation Status: DNR/DNI:Do Not Resuscitate/Intubate (discussed and verified with the patient) Huber Merino Dec 05, 2016 16:06
[2016-12-06] VITALS (15 sets, daily range): BP systolic 136–173; BP diastolic 67–77; PULSE 64–77; RESP 20–22; O2SAT 89–95
[2016-12-06] MEDS: Heparin 5,000 Unit/mL Inj SUBQ SCH ×3 (00:30→17:37)
[2016-12-06] MEDS: Albuterol-Ipratropium 3 mL Inhalation Solution NEB SCH ×6 (00:32→19:42)
[2016-12-06] MEDS: Insulin Human REGular 300 Unit/3 mL Inj SUBQ SCH ×4 (07:30→22:08)
[2016-12-06] MEDS: Pantoprazole 20 mg ER24 Tablet PO SCH (07:53)
[2016-12-06] MEDS: predniSONE 20 mg Tablet PO SCH (08:58)
--- NOTE | 2016-12-06 13:09 | NUR ---
Hypertension/sats Pt. having elevated BP, reading 173/77, 159/67, 168/68, with last one being manually taken. Sats also dropped to 89% on 2L. Pt. 's oxygen increased to 3L. Pt. also reported to bathing self and "getting up and down, increasing strength so that I can go home." Pt. encouraged to rest in bed, do active ROM and to do breathing exercises at rest. Dr. Cabrales notified of these results; no new orders given at this time. Will continue to monitor.
--- NOTE | 2016-12-06 14:09 | NUR ---
Social Work-readiness for discharge: Data:EMR reviewed. Pt is on day 3 of hospitalization for COPD exacerbation per H&P. Pt is not medically stable anticipate tomorrow. Pt has been up ambulating in her room, but pt still remains on O2. Pt does not use O2 at baseline, RN to work on weaning pt. Pt's family to provide transport home at discharge. No anticipated discharge needs. SW will continue to follow if needs arise. Assessment:Pt who is independent at baseline. Plan:Pt to discharge home when medically stable via POV.No anticipated discharge needs. SW will continue to follow if needs arise. FRANKLYN Blackmon
--- NOTE | 2016-12-06 16:05 | PCM.PNMED ---
Subjective Date of Service Dec 06, 2016 Subjective says feeling "much better" but still with SOB on ambulation Exam Vital Signs Vital Sign - Last Date Time Temp Pulse Resp B/P Pulse Ox O2 Delivery O2 Flow Rate FiO2 12/06/16 12:42 36.8 73 22 159/77 89 Nasal Cannula 3.00 Intake and Output 12/05/16 12/05/16 12/06/16 Cumulative From/Thru 14:59 22:59 06:59 12/03/16 08:41 - 12/06/16 06:40 Intake Total 1612 ml 250 ml 5211 ml Output Total 650 ml 1400 ml 4650 ml Balance 962 ml -1150 ml 561 ml Intake Oral 1612 ml 250 ml 4423 ml IV Total 788 ml Output Urine Total 650 ml 1400 ml 4650 ml # Voids 2 # Bowel Movements 0 1 Exam General: Alert, Oriented X3, Cooperative, No Acute Distress Head: Normal Eyes: PERRLA, EOMI, Scleral Anicteric Nose: Mucous Membr Moist/[place] Mouth: Mucous Membr Moist/[place] Neck: Supple Chest & Lungs: Chest Wall Normal, Mild bilateral inspiratory/expiratory wheezes Cardiovascular: Regular Rate/Rhythm Pulses: NL carotid, radial, femoral, DP, PT Abdomen: Non-tender, Non-distended, Normoactive bowel tones, Soft Extremities: No cyanosis/clubbing/edema bilat Neurological: Grossly Neurologically Intact, Cranial Nerves 2-12 Intact, Normal Speech IVs and Medications Medications Reviewed: Medications were reviewed in detail Lab and Diagnostics Result Diagram: 12/04/1661912/06/16 0640 X-Rays, CTs and MRIs Date of Service: 12/03/16 0840 PROCEDURE: X-RAY CHEST ONE VIEW, PORTABLE ([id number]) IMPRESSION: 1. No definite acute cardiopulmonary disease. Evaluation of the left apex limited by the overlying nonrebreather mask. Dictated by: Jarred Larson M.D. on 12/03/2016 at 9:20 Approved by: Jarred Larson M.D. on 12/03/2016 at 9:23 Date of Service: 12/04/16 0842 PROCEDURE: CT ANGIO CHEST PULMONARY EMBOLISM ([id number]) IMPRESSION: 1. No evidence for central pulmonary embolism. 2. Bilateral lateral upper lobe clustered micronodular opacities, in a pattern suggestive of early infectious bronchiolitis. 3. Solitary enlarged precarinal mediastinal lymph node, a nonspecific finding. 4. Asymmetric 1.6 cm nodular soft tissue density within the lateral left breast may reflect underlying mass lesion. When clinically feasible, recommend outpatient bilateral diagnostic mammography with possible left breast ultrasound for further evaluation. Dictated by: John Denise M.D. on 12/04/2016 at 11:58 Approved by: John Denise M.D. on 12/04/2016 at 12:07 Assessment & Plan 71 y/o female w/ a hx of HTN and long standing and current cigarette smoking presents today with complaint of ongoing and worsening shortness of breath over the past 2 days. # Acute shortness of breath with associated acute hypoxemia on room air, present on admission. - Strongly suspect underlying COPD in this long-time and ongoing smoker though not officially diagnosed in the past and now with acute COPD exacerbation on presentation - DuoNeb treatment qidwa - IV Solu-Medrol change to PO Prednisone on 12/05 - Echo unremarkable - CTA chest without PE # Acute Rhinovirus bronchitis, present on admission. Ongoing - Continue with supportive care # History of hypertension. - Currently normotensive - Continue home BP Meds # History of diabetes mellitus - Hold Metformin - ISS while inpatient - HgA1C 6.4 # History of hyperlipidemia - Continue with home statin # History of GERD, presumed stable - Continue with home dose PPI # Acute hyponatremia. present on admission. improving - Likely due to dehydration and HCTZ - Hold HCTZ - Followup repeat BMP # CTA chest notable for: "4. Asymmetric 1.6 cm nodular soft tissue density within the lateral left breast may reflect underlying mass lesion. When clinically feasible, recommend outpatient bilateral diagnostic mammography with possible left breast ultrasound for further evaluation." Dispo: 1-2 days GI Prophylaxis: Proton Pump Inhibitor VTE Prophylaxis: Sub-Q Heparin (Unfractionated) VTE Mechanical Devices: Intermittant Pneumatic CD Resuscitation Status: DNR/DNI:Do Not Resuscitate/Intubate (discussed and verified with the patient) Huber Merino Dec 06, 2016 16:05
[2016-12-07] VITALS (9 sets, daily range): BP systolic 136–178; BP diastolic 61–83; PULSE 60–80; RESP 20; O2SAT 88–96
[2016-12-07] MEDS: Heparin 5,000 Unit/mL Inj SUBQ SCH ×3 (00:13→16:46)
[2016-12-07 06:02] LABS: Mean Corpuscular Hemoglobin 28.2 pg (27.0-35.0); Mean Corpuscular Volume 85.1 fL (81-100)
[2016-12-07] MEDS: Albuterol-Ipratropium 3 mL Inhalation Solution NEB SCH ×2 (06:30→12:01)
[2016-12-07] MEDS: Pantoprazole 20 mg ER24 Tablet PO SCH (06:36)
[2016-12-07] MEDS: Insulin Human REGular 300 Unit/3 mL Inj SUBQ SCH ×4 (07:30→21:22)
[2016-12-07] MEDS: predniSONE 20 mg Tablet PO SCH ×2 (10:27→17:59)
--- NOTE | 2016-12-07 17:19 | PCM.PNMED ---
Subjective Date of Service Dec 07, 2016 Subjective reports continued SOB Exam Vital Signs Vital Sign - Last Date Time Temp Pulse Resp B/P Pulse Ox O2 Delivery O2 Flow Rate FiO2 12/07/16 16:58 Supplement Oxygen 12/07/16 13:28 36.3 64 20 165/61 88 12/07/16 12:01 2.00 Intake and Output 12/06/16 12/06/16 12/07/16 Cumulative From/Thru 15:00 23:00 07:00 12/03/16 08:41 - 12/07/16 06:27 Intake Total 2458 ml 380 ml 8049 ml Output Total 2200 ml 1150 ml 8000 ml Balance 258 ml -770 ml 49 ml Intake Oral 2458 ml 380 ml 7261 ml IV Total 788 ml Output Urine Total 2200 ml 1150 ml 8000 ml # Voids 2 # Bowel Movements 0 1 Exam General: Alert, Oriented X3, Cooperative, No Acute Distress Head: Normal Eyes: PERRLA, EOMI, Scleral Anicteric Nose: Mucous Membr Moist/[place] Mouth: Mucous Membr Moist/[place] Neck: Supple Chest & Lungs: Chest Wall Normal, Mild bilateral inspiratory/expiratory wheezes Cardiovascular: Regular Rate/Rhythm Pulses: NL carotid, radial, femoral, DP, PT Abdomen: Non-tender, Non-distended, Normoactive bowel tones, Soft Extremities: No cyanosis/clubbing/edema bilat Neurological: Grossly Neurologically Intact, Cranial Nerves 2-12 Intact, Normal Speech IVs and Medications Medications Reviewed: Medications were reviewed in detail Lab and Diagnostics Result Diagram: 12/07/16 0545 12/07/16 0545 X-Rays, CTs and MRIs Date of Service: 12/03/16 0840 PROCEDURE: X-RAY CHEST ONE VIEW, PORTABLE ([id number]) IMPRESSION: 1. No definite acute cardiopulmonary disease. Evaluation of the left apex limited by the overlying nonrebreather mask. Dictated by: Jarred Larson M.D. on 12/03/2016 at 9:20 Approved by: Jarred Larson M.D. on 12/03/2016 at 9:23 Date of Service: 12/04/16 0842 PROCEDURE: CT ANGIO CHEST PULMONARY EMBOLISM ([id number]) IMPRESSION: 1. No evidence for central pulmonary embolism. 2. Bilateral lateral upper lobe clustered micronodular opacities, in a pattern suggestive of early infectious bronchiolitis. 3. Solitary enlarged precarinal mediastinal lymph node, a nonspecific finding. 4. Asymmetric 1.6 cm nodular soft tissue density within the lateral left breast may reflect underlying mass lesion. When clinically feasible, recommend outpatient bilateral diagnostic mammography with possible left breast ultrasound for further evaluation. Dictated by: John Denise M.D. on 12/04/2016 at 11:58 Approved by: John Denise M.D. on 12/04/2016 at 12:07 Assessment & Plan 71 y/o female w/ a hx of HTN and long standing and current cigarette smoking presents today with complaint of ongoing and worsening shortness of breath over the past 2 days. # Acute respiratory failure with hypoxia, present on admission. Improving - Strongly suspect underlying COPD in this long-time and ongoing smoker though not officially diagnosed in the past and now with acute COPD exacerbation on presentation - DuoNeb treatment - IV Solu-Medrol change to PO Prednisone on 12/05 - Echo unremarkable - CTA chest without PE - Start Azithromycin - Increase PO prednisone to 60mg BID on 12/07/16 - Budesonide 0.5mg nebulized BID started on 12/07/16 # Acute Rhinovirus bronchitis, present on admission. Ongoing - Continue with supportive care # History of hypertension. - Currently normotensive - Continue home BP Meds # History of diabetes mellitus - Hold Metformin - ISS while inpatient - HgA1C 6.4 # History of hyperlipidemia - Continue with home statin # History of GERD, presumed stable - Continue with home dose PPI # Acute hyponatremia. present on admission. improving - Likely due to dehydration and HCTZ - Hold HCTZ - Followup repeat BMP # CTA chest notable for: "4. Asymmetric 1.6 cm nodular soft tissue density within the lateral left breast may reflect underlying mass lesion. When clinically feasible, recommend outpatient bilateral diagnostic mammography with possible left breast ultrasound for further evaluation." # Acute leukocytosis - Likely reactive and also due to steroids - Followup Dispo: 1-2 days GI Prophylaxis: Proton Pump Inhibitor VTE Prophylaxis: Sub-Q Heparin (Unfractionated) VTE Mechanical Devices: Intermittant Pneumatic CD Resuscitation Status: DNR/DNI:Do Not Resuscitate/Intubate (discussed and verified with the patient) Huber Merino Dec 07, 2016 17:19
--- NOTE | 2016-12-07 18:30 | NUR ---
O2 Needs/SOB Per report, pt titrated on O2 NC to 1L, Satting at 95% in the early AM. During morning shift, pt reports coughing and increased SOB at rest. Pt satting in mid to low 80s on 1L NC. Increased O2 to 3L for comfort and SpO2 increased to 90%. Pt continues to report SOB. Pt took a shower in the morning, reports feeling very tired and SOB but able to tolerated activity if moving slowly. Multiple attempts to titrate O2 during shift - pt currently at 2L NC with SpO2 at 90%. Continues to report mild SOB and limiting activity as tolerated. Continuous Pulse Ox in place for close monitoring.
[2016-12-07] MEDS: Budesonide 0.5 mg/2 mL Inhalation Solution NEB SCH (20:27)
[2016-12-07] MEDS: Albuterol-Ipratropium 3 mL Inhalation Solution NEB PRN (20:28)
[2016-12-08] VITALS (8 sets, daily range): BP systolic 145–176; BP diastolic 70–80; PULSE 63–92; RESP 18–20; O2SAT 84–93
[2016-12-08] MEDS: Heparin 5,000 Unit/mL Inj SUBQ SCH ×4 (00:29→23:49)
[2016-12-08] MEDS: Pantoprazole 20 mg ER24 Tablet PO SCH (07:02)
[2016-12-08] MEDS: Insulin Human REGular 300 Unit/3 mL Inj SUBQ SCH ×4 (07:30→20:58)
[2016-12-08] MEDS: Budesonide 0.5 mg/2 mL Inhalation Solution NEB SCH ×2 (09:03→20:37)
[2016-12-08] MEDS: Albuterol-Ipratropium 3 mL Inhalation Solution NEB PRN ×4 (09:04→20:37)
[2016-12-08] MEDS: predniSONE 20 mg Tablet PO SCH ×2 (09:40→17:54)
--- NOTE | 2016-12-08 11:00 | NUR ---
Social Work: Readiness for d/c Data: Pt is on day 5 of hospitalization. EMR reviewed, pt discussed in rounds. MD states pt likely to d/c in 1-2 days once O2 is back to baseline. No d/c planning needs at this time. SAND MILLER will continue to follow if needs arise. Assessment: Pt who is independent at baseline. Plan: Pt will d/c home via POV when medically stable, likely in 1-2 days per MD. No d/c planning needs at this time. SAND MILLER will continue to follow if needs arise. FRANKLYN Saavedra
--- NOTE | 2016-12-08 13:54 | NUR ---
pt's o2 sats drop quickly with any amount of activity. Today she was 85% at rest on room air. . O2 @ 2 LITERS and her O2 SATS WERE 91% at rest with slow ambulation done inside pts room for appx 7 minutes she required O2 at 4 liters and was unable to maintain o2 sats higher than 88 % . at 5 liters she was 89% she then needed to sit down, pt stated she does not feel like she is ready to go home yet
--- NOTE | 2016-12-08 18:17 | PCM.PNMED ---
Subjective Date of Service Dec 08, 2016 Subjective reports continued SOB Exam Vital Signs Vital Sign - Last Date Time Temp Pulse Resp B/P Pulse Ox O2 Delivery O2 Flow Rate FiO2 12/08/16 17:09 78 20 84 Room Air 12/08/16 13:47 2.00 12/08/16 13:12 36.6 145/70 Intake and Output 12/07/16 12/07/16 12/08/16 Cumulative From/Thru 15:00 23:00 07:00 12/03/16 08:41 - 12/08/16 05:11 Intake Total 640 ml 8689 ml Output Total 1200 ml 9200 ml Balance -560 ml -511 ml Intake Oral 640 ml 7901 ml IV Total 788 ml Output Urine Total 1200 ml 9200 ml # Voids 2 # Bowel Movements 2 3 Exam General: Alert, Oriented X3, Cooperative, No Acute Distress Head: Normal Eyes: PERRLA, EOMI, Scleral Anicteric Nose: Mucous Membr Moist/[place] Mouth: Mucous Membr Moist/[place] Neck: Supple Chest & Lungs: Chest Wall Normal, Mild bilateral inspiratory/expiratory wheezes Cardiovascular: Regular Rate/Rhythm Pulses: NL carotid, radial, femoral, DP, PT Abdomen: Non-tender, Non-distended, Normoactive bowel tones, Soft Extremities: No cyanosis/clubbing/edema bilat Neurological: Grossly Neurologically Intact, Cranial Nerves 2-12 Intact, Normal Speech IVs and Medications Medications Reviewed: Medications were reviewed in detail Lab and Diagnostics Result Diagram: 12/07/16 0545 12/07/16 0545 X-Rays, CTs and MRIs Date of Service: 12/03/16 0840 PROCEDURE: X-RAY CHEST ONE VIEW, PORTABLE ([id number]) IMPRESSION: 1. No definite acute cardiopulmonary disease. Evaluation of the left apex limited by the overlying nonrebreather mask. Dictated by: Jarred Larson M.D. on 12/03/2016 at 9:20 Approved by: Jarred Larson M.D. on 12/03/2016 at 9:23 Date of Service: 12/04/16 0842 PROCEDURE: CT ANGIO CHEST PULMONARY EMBOLISM ([id number]) IMPRESSION: 1. No evidence for central pulmonary embolism. 2. Bilateral lateral upper lobe clustered micronodular opacities, in a pattern suggestive of early infectious bronchiolitis. 3. Solitary enlarged precarinal mediastinal lymph node, a nonspecific finding. 4. Asymmetric 1.6 cm nodular soft tissue density within the lateral left breast may reflect underlying mass lesion. When clinically feasible, recommend outpatient bilateral diagnostic mammography with possible left breast ultrasound for further evaluation. Dictated by: John Denise M.D. on 12/04/2016 at 11:58 Approved by: John Denise M.D. on 12/04/2016 at 12:07 Assessment & Plan 71 y/o female w/ a hx of HTN and long standing and current cigarette smoking presents today with complaint of ongoing and worsening shortness of breath over the past 2 days. # Acute respiratory failure with hypoxia, present on admission. Improving - Strongly suspect underlying COPD in this long-time and ongoing smoker though not officially diagnosed in the past and now with acute COPD exacerbation on presentation - DuoNeb treatment - IV Solu-Medrol change to PO Prednisone on 12/05 - Echo unremarkable - CTA chest without PE - Continue Azithromycin (day 2) - Increase PO prednisone to 60mg BID on 12/07/16 - Budesonide 0.5mg nebulized BID started on 12/07/16 - Check ABG # Acute Rhinovirus bronchitis, present on admission. Ongoing - Continue with supportive care # History of hypertension. - Currently normotensive - Continue home BP Meds # History of diabetes mellitus - Hold Metformin - ISS while inpatient - HgA1C 6.4 # History of hyperlipidemia - Continue with home statin # History of GERD, presumed stable - Continue with home dose PPI # Acute hyponatremia. present on admission. improving - Likely due to dehydration and HCTZ - Hold HCTZ - Followup repeat BMP # CTA chest notable for: "4. Asymmetric 1.6 cm nodular soft tissue density within the lateral left breast may reflect underlying mass lesion. When clinically feasible, recommend outpatient bilateral diagnostic mammography with possible left breast ultrasound for further evaluation." # Acute leukocytosis - Likely reactive and also due to steroids - Followup Dispo: 1-2 days GI Prophylaxis: Proton Pump Inhibitor VTE Prophylaxis: Sub-Q Heparin (Unfractionated) VTE Mechanical Devices: Intermittant Pneumatic CD Resuscitation Status: DNR/DNI:Do Not Resuscitate/Intubate (discussed and verified with the patient) Huber Merino Dec 08, 2016 18:17
--- NOTE | 2016-12-08 18:39 | NUR ---
Activity Pt up in chair and engaging in activities in room (ADLs). Reports being tired and CPOX alarm going off. Pt on 2L O2 NC satting in low 90s at rest. Pt requires more oxygen with activity and will desat per PT eval, oxygen increased as high as 5L to maintain levels. Continuing with plan of care, pt pleasant and cooperative.
--- NOTE | 2016-12-09 04:03 | NUR ---
PT ACTIVITY/RESPIRATORY Pt has remained in room during shift. Pt up to BR, independent. Pt continues to have some dyspnea w/ activity, but states improvement. Pt has productive cough. Pt on 2L, pt has not been attempted to wean off oxygen. Continue to monitor. Call light in reach. Intentional rounding.
[2016-12-09 04:33] VITALS: BP 169/71; PULSE 76; RESP 20; O2SAT 92
[2016-12-09 04:36] LABS: BASOPHILS % (AUTO) 0.2 % (0-3); EOSINOPHILS % (AUTO) 0 % (0-5); MONOCYTES % (AUTO) 7.2 % (4-12); Mean Corpuscular Hemoglobin 28.2 pg (27.0-35.0); NEUTROPHILS % (AUTO) 77.8 % (40-74); Platelet Count 278 bil/L (150-400)
[2016-12-09] MEDS: Pantoprazole 20 mg ER24 Tablet PO SCH (05:44)
[2016-12-09] MEDS: Insulin Human REGular 300 Unit/3 mL Inj SUBQ SCH ×4 (07:30→20:35)
[2016-12-09] MEDS: Budesonide 0.5 mg/2 mL Inhalation Solution NEB SCH ×2 (08:23→20:38)
[2016-12-09] MEDS: Albuterol-Ipratropium 3 mL Inhalation Solution NEB PRN ×2 (08:23→20:38)
[2016-12-09 08:30] VITALS: PULSE 74; RESP 18; O2SAT 94
--- NOTE | 2016-12-09 08:30 | NUR ---
CEFERINO signed. FRANKLYN Blackmon
[2016-12-09] MEDS: predniSONE 20 mg Tablet PO SCH ×2 (09:07→16:53)
[2016-12-09] MEDS: Heparin 5,000 Unit/mL Inj SUBQ SCH ×2 (09:08→16:53)
[2016-12-09 13:40] VITALS: BP 145/68; PULSE 73; RESP 20; O2SAT 92
--- NOTE | 2016-12-09 17:00 | NUR ---
O2/Activity Pt on RA for day shift, tried to ambulate with PT however was unable to maintain O2 sats above 87%. Pt has remained in room thorough out shift however has been independent to bathroom with steady gait. Pt continues to be dyspneic w/ activity, but feels is improving. Call light in reach will continue to monitor.
--- NOTE | 2016-12-09 17:17 | PCM.PNMED ---
Subjective Date of Service Dec 09, 2016 Subjective reports continued SOB but improving Exam Vital Signs Vital Sign - Last Date Time Temp Pulse Resp B/P Pulse Ox O2 Delivery O2 Flow Rate FiO2 12/09/16 13:40 36.6 73 20 145/68 92 Nasal Cannula 2.00 Intake and Output 12/08/16 12/08/16 12/09/16 Cumulative From/Thru 15:00 23:00 07:00 12/03/16 08:41 - 12/09/16 06:20 Intake Total 450 ml 1376 ml 350 ml 61467 ml Output Total 1000 ml 1250 ml 1375 ml 02233 ml Balance -550 ml 126 ml -1025 ml -1960 ml Intake Oral 450 ml 1376 ml 350 ml 78717 ml IV Total 788 ml Output Urine Total 1000 ml 1250 ml 1375 ml 25046 ml # Voids 2 # Bowel Movements 0 0 3 Exam General: Alert, Oriented X3, Cooperative, No Acute Distress Head: Normal Eyes: PERRLA, EOMI, Scleral Anicteric Nose: Mucous Membr Moist/[place] Mouth: Mucous Membr Moist/[place] Neck: Supple Chest & Lungs: Chest Wall Normal, Mild bilateral inspiratory/expiratory wheezes Cardiovascular: Regular Rate/Rhythm Pulses: NL carotid, radial, femoral, DP, PT Abdomen: Non-tender, Non-distended, Normoactive bowel tones, Soft Extremities: No cyanosis/clubbing/edema bilat Neurological: Grossly Neurologically Intact, Cranial Nerves 2-12 Intact, Normal Speech IVs and Medications Medications Reviewed: Medications were reviewed in detail Lab and Diagnostics Result Diagram: 12/09/16 0425 12/07/16 0545 X-Rays, CTs and MRIs Date of Service: 12/03/16 0840 PROCEDURE: X-RAY CHEST ONE VIEW, PORTABLE ([id number]) IMPRESSION: 1. No definite acute cardiopulmonary disease. Evaluation of the left apex limited by the overlying nonrebreather mask. Dictated by: Jarred Larson M.D. on 12/03/2016 at 9:20 Approved by: Jarred Larson M.D. on 12/03/2016 at 9:23 Date of Service: 12/04/16 0842 PROCEDURE: CT ANGIO CHEST PULMONARY EMBOLISM ([id number]) IMPRESSION: 1. No evidence for central pulmonary embolism. 2. Bilateral lateral upper lobe clustered micronodular opacities, in a pattern suggestive of early infectious bronchiolitis. 3. Solitary enlarged precarinal mediastinal lymph node, a nonspecific finding. 4. Asymmetric 1.6 cm nodular soft tissue density within the lateral left breast may reflect underlying mass lesion. When clinically feasible, recommend outpatient bilateral diagnostic mammography with possible left breast ultrasound for further evaluation. Dictated by: John Denise M.D. on 12/04/2016 at 11:58 Approved by: John Denise M.D. on 12/04/2016 at 12:07 Assessment & Plan 71 y/o female w/ a hx of HTN and long standing and current cigarette smoking presents today with complaint of ongoing and worsening shortness of breath over the past 2 days. # Acute respiratory failure with hypoxia, present on admission. Improving - Strongly suspect underlying COPD in this long-time and ongoing smoker though not officially diagnosed in the past and now with acute COPD exacerbation on presentation - DuoNeb treatment - IV Solu-Medrol change to PO Prednisone on 12/05 - Echo unremarkable - CTA chest without PE - Continue Azithromycin (day 3) - Continue with increase PO prednisone to 60mg BID on 12/07/16 and start titrating down soon - Budesonide 0.5mg nebulized BID started on 12/07/16 # Acute Rhinovirus bronchitis, present on admission. Ongoing - Continue with supportive care # History of hypertension. Poorly controlled - Continue home BP Meds and restart Lisinopril # History of diabetes mellitus - Hold Metformin - ISS while inpatient - HgA1C 6.4 # History of hyperlipidemia - Continue with home statin # History of GERD, presumed stable - Continue with home dose PPI # Acute hyponatremia. present on admission. improving - Likely due to dehydration and HCTZ - Hold HCTZ - Followup repeat BMP # CTA chest notable for: "4. Asymmetric 1.6 cm nodular soft tissue density within the lateral left breast may reflect underlying mass lesion. When clinically feasible, recommend outpatient bilateral diagnostic mammography with possible left breast ultrasound for further evaluation." # Acute leukocytosis - Likely reactive and also due to steroids - Followup Dispo: 1-2 days GI Prophylaxis: Proton Pump Inhibitor VTE Prophylaxis: Sub-Q Heparin (Unfractionated) VTE Mechanical Devices: Intermittant Pneumatic CD Resuscitation Status: DNR/DNI:Do Not Resuscitate/Intubate (discussed and verified with the patient) Huber Merino Dec 09, 2016 17:17
[2016-12-09] MEDS: Lisinopril 40 Tablet PO SCH (18:12)
[2016-12-09 20:24] VITALS: BP 165/62; PULSE 82; RESP 18; O2SAT 89
[2016-12-09 20:40] VITALS: PULSE 78; RESP 18; O2SAT 89
[2016-12-10] VITALS (7 sets, daily range): BP systolic 152–174; BP diastolic 68–77; PULSE 66–80; RESP 18–20; O2SAT 88–92
[2016-12-10] MEDS: Heparin 5,000 Unit/mL Inj SUBQ SCH ×3 (00:01→16:41)
--- NOTE | 2016-12-10 05:04 | NUR ---
PT ACTIVITY/RESPIRATORY Pt has been up in room and to BR independently. Pt has remained on RA 88-91%, even when spot-checked during sleep. Pt has denied SOB during shift. Pt states feeling overall improvement. Continue to monitor. Call light in reach. Intentional rounding.
[2016-12-10] MEDS: Pantoprazole 20 mg ER24 Tablet PO SCH (05:45)
[2016-12-10 06:32] LABS: Mean Corpuscular Hemoglobin 27.9 pg (27.0-35.0); Mean Corpuscular Volume 83.8 fL (81-100)
[2016-12-10 06:49] LABS: Magnesium 1.9 mg/dL (1.6-2.6)
[2016-12-10] MEDS: Insulin Human REGular 300 Unit/3 mL Inj SUBQ SCH ×4 (07:30→21:59)
[2016-12-10] MEDS: predniSONE 20 mg Tablet PO SCH ×2 (08:03→21:58)
[2016-12-10] MEDS: Lisinopril 40 Tablet PO SCH (08:04)
--- NOTE | 2016-12-10 11:14 | NUR ---
Social Work-readiness for discharge: Data:EMR Reviewed. Pt is on day 7 of hospitalization for COPD exac per H&P. Pt is not medically stable anticipate 1-2 more days. Pt resides at home alone. SW followed up with pt and son Manan at bedside, both confirm plan of home no needs. Son to provide transport. RN to check pt's O2 needs and determine if RT will need to evaluate for home O2. No anticipated discharge needs. SW will continue to follow if needs arise. Assessment:Pt who is independent at baseline. Plan:Pt to discharge home when medically stable via POV. No anticipated discharge needs. SW will continue to follow if needs arise. FRANKLYN Blackmon
--- NOTE | 2016-12-10 11:43 | NUR ---
[id number] Home O2 evaluation done. Pt. Resting RA sats 89-91%. Pt. ambulated in room without O2. O2 sats dropped to 84%. Pt. stopped, did DB&C to clear airway, did pursed lip breathing. Within 2-3 minutes pt. O2 sats back to 88-90%. Repeated test with pt. for 8 minutes. Each time pt. was able to recover O2 sats without Oxygen.
[2016-12-10] MEDS: Albuterol-Ipratropium 3 mL Inhalation Solution NEB PRN ×2 (14:22→19:31)
[2016-12-10] MEDS: Budesonide 0.5 mg/2 mL Inhalation Solution NEB SCH ×2 (14:22→19:31)
--- NOTE | 2016-12-10 15:50 | NUR ---
Pt spoke with MD, was made aware recommendation for discharge will be delayed due to respiratory status. Pt reports is feeling very disappointed, would really like to go home to see her dog, stay in her home and enjoy her own space. This RN listened attentively, reviewed reasoning for having pt stay additional time. Pt states verbal understanding, spoke with son and is now feeling better about have to stay. Encouraged pt to contact the staff with any additional needs, call light in reach, will continue to monitor.
--- NOTE | 2016-12-10 16:37 | PCM.PNMED ---
Subjective Date of Service Dec 10, 2016 Subjective Says wants to go home even though she till gets SOB and oxygen desaturates on ambulation. Had respiratory therapy assess her and noted that she would desat to low 80s on room air with ambulation. Offered to discharge her home with home O2 but says doesn't think it's safe for her to go home with portable O2 because she has gas stove and furnaces in her home. Agrees to stay another night to see if her oxygen saturation would continue to improve Exam Vital Signs Vital Sign - Last Date Time Temp Pulse Resp B/P Pulse Ox O2 Delivery O2 Flow Rate FiO2 12/10/16 16:05 36.6 75 18 152/73 92 Room Air 12/09/16 13:40 2.00 Intake and Output 12/09/16 12/09/16 12/10/16 Cumulative From/Thru 15:00 23:00 07:00 12/03/16 08:41 - 12/10/16 06:01 Intake Total 1000 ml 773 ml 23160 ml Output Total 1200 ml 1400 ml 54073 ml Balance -200 ml -627 ml -2787 ml Intake Oral 1000 ml 773 ml 65599 ml IV Total 788 ml Output Urine Total 1200 ml 1400 ml 61183 ml # Voids 2 # Bowel Movements 3 Exam General: Alert, Oriented X3, Cooperative, No Acute Distress Head: Normal Eyes: PERRLA, EOMI, Scleral Anicteric Nose: Mucous Membr Moist/[place] Mouth: Mucous Membr Moist/[place] Neck: Supple Chest & Lungs: Chest Wall Normal, Clear to auscultation bilaterally Cardiovascular: Regular Rate/Rhythm Pulses: NL carotid, radial, femoral, DP, PT Abdomen: Non-tender, Non-distended, Normoactive bowel tones, Soft Extremities: No cyanosis/clubbing/edema bilat Neurological: Grossly Neurologically Intact, Cranial Nerves 2-12 Intact, Normal Speech IVs and Medications Medications Reviewed: Medications were reviewed in detail Lab and Diagnostics Result Diagram: 12/10/1661112/10/16611 X-Rays, CTs and MRIs Date of Service: 12/03/16 0840 PROCEDURE: X-RAY CHEST ONE VIEW, PORTABLE ([id number]) IMPRESSION: 1. No definite acute cardiopulmonary disease. Evaluation of the left apex limited by the overlying nonrebreather mask. Dictated by: Jarred Larson M.D. on 12/03/2016 at 9:20 Approved by: Jarred Larson M.D. on 12/03/2016 at 9:23 Date of Service: 12/04/16 0842 PROCEDURE: CT ANGIO CHEST PULMONARY EMBOLISM ([id number]) IMPRESSION: 1. No evidence for central pulmonary embolism. 2. Bilateral lateral upper lobe clustered micronodular opacities, in a pattern suggestive of early infectious bronchiolitis. 3. Solitary enlarged precarinal mediastinal lymph node, a nonspecific finding. 4. Asymmetric 1.6 cm nodular soft tissue density within the lateral left breast may reflect underlying mass lesion. When clinically feasible, recommend outpatient bilateral diagnostic mammography with possible left breast ultrasound for further evaluation. Dictated by: John Denise M.D. on 12/04/2016 at 11:58 Approved by: John Denise M.D. on 12/04/2016 at 12:07 Assessment & Plan 71 y/o female w/ a hx of HTN and long standing and current cigarette smoking presents today with complaint of ongoing and worsening shortness of breath over the past 2 days. # Acute respiratory failure with hypoxia, present on admission. Improving - Strongly suspect underlying COPD in this long-time and ongoing smoker though not officially diagnosed in the past and now with acute COPD exacerbation on presentation - DuoNeb treatment - IV Solu-Medrol change to PO Prednisone on 12/05 - Echo unremarkable - CTA chest without PE - Continue Azithromycin (day 3) - Increased PO prednisone to 60mg BID on 12/07/16. Will start tapering down to 40mg bid - Budesonide 0.5mg nebulized BID started on 12/07/16 # Acute Rhinovirus bronchitis, present on admission. Ongoing - Continue with supportive care # History of hypertension. Poorly controlled - Continue home BP Meds and restart Lisinopril # History of diabetes mellitus - Hold Metformin - ISS while inpatient - HgA1C 6.4 # History of hyperlipidemia - Continue with home statin # History of GERD, presumed stable - Continue with home dose PPI # Acute hyponatremia. present on admission. improving - Likely due to dehydration and HCTZ - Hold HCTZ - Followup repeat BMP # CTA chest notable for: "4. Asymmetric 1.6 cm nodular soft tissue density within the lateral left breast may reflect underlying mass lesion. When clinically feasible, recommend outpatient bilateral diagnostic mammography with possible left breast ultrasound for further evaluation." # Acute leukocytosis - Likely reactive and also due to steroids - Followup Dispo: 1-2 days pending improved respiratory status and oxygenation GI Prophylaxis: Proton Pump Inhibitor VTE Prophylaxis: Sub-Q Heparin (Unfractionated) VTE Mechanical Devices: Intermittant Pneumatic CD Resuscitation Status: DNR/DNI:Do Not Resuscitate/Intubate (discussed and verified with the patient) Huber Merino Dec 10, 2016 16:37
[2016-12-11] MEDS: Heparin 5,000 Unit/mL Inj SUBQ SCH ×2 (00:21→08:30)
[2016-12-11 04:37] VITALS: BP 158/77; PULSE 74; RESP 18; O2SAT 92
--- NOTE | 2016-12-11 05:53 | NUR ---
Respiratory: RA sats 89-92% through the night at rest. Pt was able to sleep some, up independently in room to chair and couch. Congested cough, states it is less productive than a couple days ago. Cooperative with care, using call light for needs.
[2016-12-11] MEDS: Pantoprazole 20 mg ER24 Tablet PO SCH (06:11)
[2016-12-11 07:06] LABS: EOSINOPHILS % (AUTO) 0 % (0-5); Mean Corpuscular Hemoglobin 28.2 pg (27.0-35.0); Mean Corpuscular Volume 83.7 fL (81-100); Platelet Count 283 bil/L (150-400)
[2016-12-11] MEDS: Insulin Human REGular 300 Unit/3 mL Inj SUBQ SCH (07:30)
[2016-12-11 07:32] LABS: Magnesium 1.9 mg/dL (1.6-2.6)
[2016-12-11 07:42] LABS: BASOPHILS % (AUTO) 0 % (0-3); MONOCYTES % (AUTO) 8 % (4-12); NEUTROPHILS % (AUTO) 73 % (40-74)
[2016-12-11 08:17] VITALS: PULSE 72; RESP 20; O2SAT 90
[2016-12-11] MEDS: Budesonide 0.5 mg/2 mL Inhalation Solution NEB SCH (08:17)
[2016-12-11] MEDS: predniSONE 20 mg Tablet PO SCH (08:21)
[2016-12-11] MEDS: Lisinopril 40 Tablet PO SCH (08:21)
--- NOTE | 2016-12-11 09:23 | PCM.DIMED ---
Discharge Instructions Date of Service Dec 11, 2016 Dates of Hospitalization Dec 03, 2016 at 11:54 Discharge Diagnosis Discharge Diagnosis # Acute respiratory failure with hypoxia, present on admission. Improving - Strongly suspect underlying COPD in this long-time and ongoing smoker though not officially diagnosed in the past and now with acute COPD exacerbation on presentation # Acute Rhinovirus bronchitis, present on admission. Ongoing # History of hypertension. Poorly controlled # History of diabetes mellitus # History of hyperlipidemia # History of GERD, presumed stable # CTA chest notable for: "4. Asymmetric 1.6 cm nodular soft tissue density within the lateral left breast may reflect underlying mass lesion. When clinically feasible, recommend outpatient bilateral diagnostic mammography with possible left breast ultrasound for further evaluation." # Acute leukocytosis - Likely reactive and also due to steroids Diet Discharge Diet: Low fat, Low Sodium, Diabetic Activity Discharge Activity: Limited until seen by PCP Call your provider Call your provider for: Fever or Chills, Shortness of breath, Bleeding, Chest pain, Vomitting, Excessive diarrhea, Weakness (unilateral) Patient Instructions Patient Instructions You were hospitalized due to acute hypoxic respiratory failure.You were found to have rhinovirus/enterovirus bronchitis.We suspect you might have underlying undiagnosed COPD. Please continue prednisone taper as prednisone 40 mg by mouth daily for 2 days then prednisone 30 mg by mouth daily for 2 days then prednisone 20 mg by mouth daily for 2 days then prednisone 10 mg by mouth daily for 2 days. Please continue using home oxygen as needed. Please follow-up with PCP for pulmonary function test for proper diagnosis of COPD and prescription of appropriate COPD medications. CT scan showed nodular soft tissue density within the lateral left breast may reflect underlying mass lesion. Please follow-up with PCP in one week to get bilateral diagnostic mammogram or left breast ultrasound. Follow-up Provider: Nick Avalos DO Follow-up with PCP in: 1 week Tan Rodriguez MD Dec 11, 2016 09:23
[2016-12-11] MEDS ORDERED: ALBU8.5H2 INHALATION (09:26)
[2016-12-11] MEDS ORDERED: PRED-508 PO (09:26)
--- NOTE | 2016-12-11 09:56 | NUR ---
Social Work-discharge: Data:EMR Reviewed. Pt is on day 8 of hospitalization for COPD per H&P. Pt is medically stable for discharge. RT to evaluate for home O2. Per RN, pt does not qualify. Pt has been up independent in her room. Pt's family to provide transport home today. No discharge needs identified. All updated and agreeable to plan. Assessment:Pt who is independent at baseline. Plan:Pt to discharge home today via POV.No discharge needs identified. All updated and agreeable to plan. FRANKLYN Blackmon
--- NOTE | 2016-12-11 10:18 | PCM.DC.MED ---
Discharge Summary Date of Service Dec 11, 2016 Dates of Hospitalization Date of Hospital Admission Dec 03, 2016 at 11:54 Date of Discharge: Dec 11, 2016 Providers: Admitting Physician: Ann Barnett MD Primary Care Physician: Nick Avalos DO Attending Physician: Ann Barnett MD Diagnosis at Time of Discharge Diagnosis at Time of Discharge # Acute respiratory failure with hypoxia, present on admission. Improving - Strongly suspect underlying COPD in this long-time and ongoing smoker though not officially diagnosed in the past and now with acute COPD exacerbation on presentation # Acute Rhinovirus bronchitis, present on admission. Ongoing # History of hypertension. Poorly controlled # History of diabetes mellitus # History of hyperlipidemia # History of GERD, presumed stable # CTA chest notable for: "4. Asymmetric 1.6 cm nodular soft tissue density within the lateral left breast may reflect underlying mass lesion. When clinically feasible, recommend outpatient bilateral diagnostic mammography with possible left breast ultrasound for further evaluation." # Acute leukocytosis - Likely reactive and also due to steroids Procedures XRay, CTs & MRIs Date of Service: 12/03/16 0840 PROCEDURE: X-RAY CHEST ONE VIEW, PORTABLE ([id number]) IMPRESSION: 1. No definite acute cardiopulmonary disease. Evaluation of the left apex limited by the overlying nonrebreather mask. Dictated by: Jarred Larson M.D. on 12/03/2016 at 9:20 Approved by: Jarred Larson M.D. on 12/03/2016 at 9:23 Date of Service: 12/04/16 0842 PROCEDURE: CT ANGIO CHEST PULMONARY EMBOLISM ([id number]) IMPRESSION: 1. No evidence for central pulmonary embolism. 2. Bilateral lateral upper lobe clustered micronodular opacities, in a pattern suggestive of early infectious bronchiolitis. 3. Solitary enlarged precarinal mediastinal lymph node, a nonspecific finding. 4. Asymmetric 1.6 cm nodular soft tissue density within the lateral left breast may reflect underlying mass lesion. When clinically feasible, recommend outpatient bilateral diagnostic mammography with possible left breast ultrasound for further evaluation. Dictated by: John Denise M.D. on 12/04/2016 at 11:58 Approved by: John Denise M.D. on 12/04/2016 at 12:07 Brief History per HPI 71 y/o female w/ a hx of HTN and long standing and current cigarette smoking presents today with complaint of ongoing and worsening shortness of breath over the past 2 days. She first noticed her symptoms 2 days ago on Sunday when walking her dog and was only able to make it a portion of a block before she had to stop in order to catch her breath. Her shortness of breath has been getting worse and today she was having a hard time catching her breath just going to the bathroom and so decided to present to the hospital. She has chronic cough but it has been more productive of greenish to clear sputum over the past week or so. She tried to smoke yesterday but became quite nauseous and vomited once and so has not been able to smoke her regular pack/day for past couple of days. She has also noted increased wheezing with her shortness of breath and cough. She otherwise denies any chest pain, palpitations, lightheadedness, orthopnea, paroxysmal nocturnal dyspnea, weight gain, lower extremity edema or pain in her calf or legs. She denies any sick contacts or recent travel. She was recently diagnosed with diabetes and is currently on Metformin. 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 In the ED her lung exam was reported as notable for significant wheezing and as a result she received a dose IV Solu-Medrol and nebulizer treatment. Hospital Course 71 y/o female w/ a hx of HTN and long standing and current cigarette smoking presents today with complaint of ongoing and worsening shortness of breath over the past 2 days. # Acute respiratory failure with hypoxia, present on admission. Improving - Strongly suspect underlying COPD in this long-time and ongoing smoker though not officially diagnosed in the past and now with acute COPD exacerbation on presentation - DuoNeb treatment - IV Solu-Medrol change to PO Prednisone on 12/05 - Echo unremarkable - CTA chest without PE - Completed 5 day course of Azithromycin - Increased PO prednisone to 60mg BID on 12/07/16. tapered down to 40mg bid . Discharged on prednisone taper 40daily 2d,30 daily 2, 20 daily 2, 10 daily 2 - Budesonide 0.5mg nebulized BID started on 12/07/16 -proair as needed upon discharge # Acute Rhinovirus bronchitis, present on admission. Ongoing - Continue with supportive care # History of hypertension. Poorly controlled - Continue home BP Meds and restarted Lisinopril # History of diabetes mellitus -Resume Metformin - ISS while inpatient - HgA1C 6.4 # History of hyperlipidemia - Continue with home statin # History of GERD, presumed stable - Continue with home dose PPI # Acute hyponatremia. present on admission. improving - Likely due to dehydration and HCTZ - Resume HCTZ # CTA chest notable for: "4. Asymmetric 1.6 cm nodular soft tissue density within the lateral left breast may reflect underlying mass lesion. When clinically feasible, recommend outpatient bilateral diagnostic mammography with possible left breast ultrasound for further evaluation." -Explained to patient # Acute leukocytosis - Likely reactive and also due to steroids - Followup with PCP in 1 week Dispo: Discharged home on home oxygen Advised to follow-up with PCP in 1 week for mammogram and breast ultrasound. Also advised to get PFT outpatient with PCP Exam Vital Signs (Last) Date Time Temp Pulse Resp B/P Pulse Ox O2 Delivery O2 Flow Rate FiO2 12/11/16 08:17 72 20 90 Room Air 12/11/16 04:37 36.7 158/77 12/09/16 13:40 2.00 Exam General: Alert, Oriented X3, Cooperative, No Acute Distress Head: Normal Eyes: PERRLA, EOMI, Scleral Anicteric Nose: Mucous Membr Moist/[place] Mouth: Mucous Membr Moist/[place] Neck: Supple,breast deferred Chest & Lungs: Chest Wall Normal, Clear to auscultation bilaterally Cardiovascular: Regular Rate/Rhythm Pulses: NL carotid, radial, femoral, DP, PT Abdomen: Non-tender, Non-distended, Normoactive bowel tones, Soft Extremities: No cyanosis/clubbing/edema bilat Neurological: Grossly Neurologically Intact, Cranial Nerves 2-12 Intact, Normal Speech Test 12/03/16 08:35 12/03/16 12:00 12/04/16 06:20 12/11/16 06:35 Hold Blue Top Tube Received (Received) Hemoglobin A1c 6.4% (4.8-5.6) Troponin T 0.010ug/L (0.0-0.011) Pro-B-Type Natriuretic Peptide 83.52pg/mL (0-301) Hold Red Top Tube Received (Received) Hold [place] Top Tube Received (Received) Hold [place] Top Tube Received (Received) Urine Color Yellow (YELLOW) Urine Appearance Clear (CLEAR,HAZY) Urine pH 7.0 (5.0-8.0) Urine Specific [place] 1.015 (1.003-1.035) Urine Protein 100mg/dL (NEG,TRACE) Urine Glucose (UA) Negativemg/dL (NEGATIVE) Urine Ketones Negativemg/dL (NEGATIVE) Urine Occult Blood Negative (NEGATIVE) Urine Nitrite Negative (NEGATIVE) Urine Bilirubin Negative (NEGATIVE) Urine Urobilinogen Normalmg/dL (NORMAL) Urine Leukocyte Esterase Negative (NEGATIVE) Urine RBC 0-2/hpf (0-2) Urine WBC 0-5/hpf (0-5) Urine Epithelial Cells Moderate/hpf (NONE-MOD) Urine Crystals None seen (NONE SEEN) Urine Bacteria Moderate/hpf (NONE-FEW) Urine Hyaline Casts Occasional/lpf (NONE) Urine Granular Casts None seen (NONE SEEN) Urine Waxy Casts None seen (NONE SEEN) Urine Red Blood Cell Casts None seen (NONE SEEN) Urine White Blood Cell Casts None seen (NONE SEEN) Urine Mucus Present (None Seen) Urine Trichomonas None seen (NONE SEEN) Urine Yeast None (NONE SEEN) Urinalysis Comment None Urine Culture Reflexed Indicated Prothrombin Time 10.5sec (8.1-12.5) Prothromb Time International Ratio 0.98ratio Activated Partial Thromboplast Time 26.1sec (22.8-33.0) D-Dimer 2.12mg/L FEU (<0.50) White Blood Count 21.6th/mm3 (3.8-10.1) Red Blood Count 5.10mil/mm3 (3.90-5.20) Hemoglobin 14.4g/dL (12.0-15.6) Hematocrit 42.7% (35.0-46.0) Mean Corpuscular Volume 83.7fL (81-100) Mean Corpuscular Hemoglobin 28.2pg (27.0-35.0) Mean Corpuscular Hemoglobin Concent 33.7% (32.0-37.0) Red Cell Distribution Width 13.9% (12.3-15.4) Platelet Count 283bil/L (150-400) Neutrophils (%) (Auto) 73% (40-74) Lymphocytes (%) (Auto) 14% (14-46) Monocytes (%) (Auto) 8% (4-12) Eosinophils (%) (Auto) 0% (0-5) Basophils (%) (Auto) 0% (0-3) Band Neutrophils % 2% (1-5) Myelocytes % 3% (0-0) Sodium Level 134mEq/L (134-144) Potassium Level 4.3mEq/L (3.5-5.2) Chloride Level 98mEq/L (97-108) Carbon Dioxide Level 21mmol/L (18-29) Blood Urea Nitrogen 16mg/dL (8-27) Creatinine 0.63mg/dL (0.57-1.00) Estimat Glomerular Filtration Rate 133mL/min (>59) Glucose Level 165mg/dL (60-99) Calcium Level 9.1mg/dL (8.5-10.1) Magnesium Level 1.9mg/dL (1.6-2.6) Total Bilirubin 0.3mg/dL (0.0-1.2) Aspartate Amino Transf (AST/SGOT) 14U/L (0-50) Alanine Aminotransferase (ALT/SGPT) 26U/L (0-32) Alkaline Phosphatase 70U/L (25-165) Total Protein 6.5g/dL (6.4-8.4) Albumin 3.6g/dL (3.4-5.0) Procalcitonin 0.05ng/mL (0.00-0.08) Discharge Medications Discharge Medications Albuterol HFA (Proair HFA) 8.5 Gm Hfa.aer.ad 2 PUFFS INHALATION Q4H Prescribed by: PINA CHATMAN MD Amlodipine (Amlodipine) 5 Mg Tablet 5 MG PO DAILY (Reported) Aspirin (Aspirin) 81 Mg Tablet 81 MG PO DAILY (Reported) Hydrochlorothiazide (Hydrochlorothiazide) 25 Mg Tablet 25 MG PO DAILY (Reported ) Lisinopril (Lisinopril) 40 Mg Tablet 40 MG PO DAILY (Reported) Lovastatin (Lovastatin) 40 Mg Tablet 40 MG PO HS (Reported) Metformin (Metformin) 500 Mg Tablet 500 MG PO BID (Reported) Metoprolol Tartrate (Metoprolol Tartrate) 100 Mg Tablet 100 MG PO BID (Reported ) Omeprazole Magnesium (Prilosec Otc) 20 Mg Tablet.dr 20 MG PO DAILY (Reported) Prednisone (Deltasone) 20 Mg Tablet 40 MG PO DAILY Prescribed by: PINA CHATMAN MD Followup Plan Disposition: Home Discharge Diet: Low fat, Low Sodium, Diabetic Discharge Activity: Limited until seen by PCP Patient Instructions You were hospitalized due to acute hypoxic respiratory failure.You were found to have rhinovirus/enterovirus bronchitis.We suspect you might have underlying undiagnosed COPD. Please continue prednisone taper as prednisone 40 mg by mouth daily for 2 days then prednisone 30 mg by mouth daily for 2 days then prednisone 20 mg by mouth daily for 2 days then prednisone 10 mg by mouth daily for 2 days. Please continue using home oxygen as needed. Please follow-up with PCP for pulmonary function test for proper diagnosis of COPD and prescription of appropriate COPD medications. CT scan showed nodular soft tissue density within the lateral left breast may reflect underlying mass lesion. Please follow-up with PCP in one week to get bilateral diagnostic mammogram or left breast ultrasound. Follow-up Provider: Nick Avalos DO Follow-up with PCP in: 1 week Time spent 35 minutes copies to: Nick Avalos Melaku MD Dec 11, 2016 10:18
--- NOTE | 2016-12-11 10:23 | NUR ---
Discharge Pt discharged at this time, all belongings gathered and returned to the pt. VSS, no complains of increased SOB or pain. IV D/Cd intact. Hard copy of new prescriptions given to pt to fill. Discharge packet printed and reviewed with pt. Pt taken from [facility] by CINDA in wheelchair to front entrance. Pt to be driven home by neighbor n private vehicle.
--- NOTE | 2016-12-11 14:36 | NUR ---
Patients resting sats 97% on RA, Walked patient down half the hallway and back to her room. At the end of the walk patient dropped to 85% patient sat down and recovered within 30 secs to sats of 90%
== END 2016-12-11 10:37 | disposition home or self-care (01) | DRG 189 ==
LOC: SED 08:17 → EDUNIT# 08:17 → EDBD 08:17 → MPC 11:54
PROVIDERS: ADMIT Hospitalist; ATTEND Hospitalist
DX: J96.01 Acute respiratory failure with hypoxia (principal); J44.1 Chronic obstructive pulmonary disease with (acute) exacerbation; E87.1 Hypo-osmolality and hyponatremia; F17.210 Nicotine dependence, cigarettes, uncomplicated; E86.0 Dehydration; J20.6 Acute bronchitis due to rhinovirus; Z79.82 Long term (current) use of aspirin; Z79.84 Long term (current) use of oral hypoglycemic drugs; I10 Essential (primary) hypertension; E78.5 Hyperlipidemia, unspecified; E11.9 Type 2 diabetes mellitus without complications; N63 Unspecified lump in breast

== ENCOUNTER → 2017-03-20 | Day surgery (SDC) | payer MEDICARE ==
[~2017-03-20] VITALS: Ht 162.6 cm; Wt 80.6 kg
[2017-03-20] VITALS (17 sets, daily range): BP systolic 98–142; BP diastolic 45–78; PULSE 55–68; RESP 11–18; O2SAT 88–100
[~2017-03-20] MED LIST: ACET-171 PO; ALBU8.5H2 INHALATION; AMLO5TAB2 PO; ASPI-973 PO; Bupivacaine-MPF 0.5% 30 mL Inj INFILTRATE ONE; CeFAZolin 2 Gm/50 mL D5W IV Premix IV SCH; Dexamethasone 4 mg/mL Inj IVPUSH PRN; EPHEDrine Sulfate 50 mg/mL Inj IVPUSH PRN; HYDR25TA4 PO; HYDROmorphone 1 mg/mL Inj IVPUSH PRN; IBUP-1827 PO; Ketamine 10 mg/mL 20 mL Inj ONE; LISI40TA PO; LOVA40TA PO; Lactated Ringer's 1,000 ML IV ONE; Lactated Ringer's 1,000 ML IV SCH; Lactated Ringer's 500 ML IV PRN; METF500T4 PO; METO100T3 PO; MetoCLOpramide 5 mg/mL 2 mL Inj IVPUSH PRN; OXYC-530 PO; Ondansetron 2 mg/mL 2 mL Inj IVPUSH PRN; POLY17PO6 PO; Phenylephrine 10,000 mCg/mL Inj IVPUSH PRN; Propofol 10,000 mCg/mL 20 mL Inj ONE; fentaNYL-PF 50 mCg/mL 2 mL Inj IVPUSH PRN; fentaNYL-PF 50 mCg/mL 2 mL Inj ONE
--- NOTE | 2017-03-20 09:52 | PCM.HPANE ---
Patient Data Surgeon Admitting Provider: Attending Provider:Mahin Brantley MD Primary Care Physician:Nick Avalos DO Other Provider:Flo Collins Anesthesia Reason for Visit Left Breast Cancer Ht/WT & BMI Height (Feet): 5 Height (Inches): 4 Weight (Kilograms): 80.28 Body Mass Index 30.00 Allergies Coded Allergies: No Known Allergies (Unverified , 03/15/17) Past Anesthesia History Anesthesia History: Denies:: Abnormal Airway, Anesthesia Reactions, Difficult Intubation, Fam Anesthesia Reaction Diabetes History Hx Diabetes?: Yes Type of Diabetes: Type II Glycemic Control: Oral Medication MRSA MRSA: No Medications Blood Thinner: Aspirin Hypertension Medication: Yes Home Meds Incl Beta Jasson: Yes Date Beta Jasson Taken: Mar 19, 2017 Time Beta Jasson Taken: 19:00 Active Scripts Albuterol HFA (Proair HFA)8.5 Gm Hfa.aer.ad2 Puffs INHALATION Q4H #1 INHALER Prov:Tan Rodriguez MD 12/11/16 Reported Medications Aspirin 81 Mg Fljrcs13 Mg PO DAILY Ref 0 12/03/16 Hydrochlorothiazide 25 Mg Mgnjrh99 Mg PO DAILY 30 Days Ref 0 12/03/16 Lisinopril 40 Mg Jsjckv47 Mg PO DAILY 30 Days Ref 0 12/03/16 Amlodipine 5 Mg Tablet5 Mg PO DAILY Ref 0 12/03/16 Lovastatin 40 Mg Plvuix25 Mg PO HS #30 TABLET Ref 0 12/03/16 Metoprolol Tartrate 100 Mg Atunot736 Mg PO BID 30 Days Ref 0 12/03/16 Metformin 500 Mg Jmxtbp292 Mg PO BID Ref 0 12/03/16 Discontinued Reported Medications Omeprazole Magnesium (Prilosec Otc)20 Mg Tablet.dr20 Mg PO DAILY #1 PKG Ref 0 12/03/16 Discontinued Scripts Prednisone (Deltasone)20 Mg Osuoxb58 Mg PO DAILY #18 TABLET Prov:Tan Rodriguez MD 12/11/16 History History of ENT Problems?: Yes HEENT History: Positive for:: Cataracts (both eyes) Sinus Problem (seasonal sneezing) Denies:: Abnormal Airway Difficult Intubation Dysphagia Glaucoma Hearing Problem TMJ Denture Type: Full- Upper Partial- Lower Teeth Condition: Missing Teeth Hx of Heart Problems?: Yes Cardiovascular History: Positive for:: Hypertension Denies:: AICD Abdominal Aortic Aneurism Atrial Fibrillation Congestive Heart Failure Heart Murmur Irregular Heartbeat Pacemaker Peripheral Vascular Rheumatic Fever Thrombophlebitis Valvular Heart Disease Hx of Respiratory Problem?: Yes Respiratory History: Positive for:: COPD (not confirmed) Oxygen Administration Denies:: Asthma Emphysema Pneumonia (respiratory failure melissa hospitalization) Tuberculosis Use of C-PAP Machine Hx Neurologic Problems?: No Neurological History: Denies:: CVA Headaches Multiple Sclerosis Parkinson's Disease Seizures Hx of GI Problems?: Yes Hx of Problems?: No Genitourinary History: Denies:: Kidney Stones Urinary Tract Infection Female Hx: Positive for:: Problems with Breasts? (left breast cancer current admission problem) Denies:: Currently (post menopausal ) Skin History: Denies:: History Skin Disorders? Pressure Ulcers Hx Musculoskeletal Problems?: Yes Musculoskeletal History: Positive for:: Back Injury Musculoskeletal Trauma (starting to have hip pains) Osteoarthritis (hands, joints) Denies:: Fibromyalgia Joint Replacement Systemic Lupus Hx of Psycho/Social Problems?: No Psycho Social History: Denies:: Anxiety Hx Depression Suicide Attempt Hx Surgeries?: Yes (benign tumors, 3x face surgeries) Hx Any Other Health Problems?: Yes Other History: Positive for:: Cancer (left breast current admission problem) Denies:: Thyroid Disease History Blood Transfusions: Positive for:: Accept Blood Products? Denies:: Blood Transfuse Reaction Blood Transfusions Hx Diabetes: Yes Hx Alcohol Use: NoHx Substance Use: No Smoking Status: Former Smoker Have You Smoked inLast 12 mo: Yes (not quite entire pack a day ) Stop/Bang S-Snoring: Do You Snore Loudly: No T-Tired: feel tired, fatigued: Yes O-Obsered: Observed not breath: No P-Blood Pressure: treated: Yes B- Body Mass Index > 35 kg/m2: No A- Age over 50: Yes N- Neck Large Circumference: No G- Gender Male: No DEBBY Total Score: 3 DEBBY Risk Assessment: High Risk, =/>3 Yes DEBBY Category 4 OutPt Procedure: Yes Risk Assessment Category Category 1A: Patient has history of documented sleep apnea, and HAS NOT received any narcotic, sedative or anesthesia administration during this stay. Category 1B: Patient has history of documented sleep apnea, and HAS received any narcotic , sedative or anesthesia administration during this stay Category 2: Patient has SUSPECTED Obstructive Sleep Apnea, and HAS received any narcotic , sedative or anesthesia administration during this stay. Category 3: Patient has SUSPECTED Obstructive Sleep Apnea and HAS NOT received narcotic, sedative or anesthesia administration during this stay. Category 4: Outpatient in Procedural Areas with known sleep apnea or who screen positive for High Risk via the STOP/BANG questionnaire. Exam Exam Vital Signs Vital Signs Date Time Temp Pulse Resp B/P Pulse Ox O2 Delivery O2 Flow Rate FiO2 03/20/17 09:14 36.8 64 16 136/78 96 Room Air General Appearance: Alert, Oriented X3, Cooperative, No Acute Distress HEENT/AIRWAY: MP 2 Lungs: Clear to Auscultation, Normal Air Movement Heart: Exam Unremarkable, Regular Rate/Rhythm, No Murmurs/Rubs/Gallops Meds/Labs/Diagnostics Admission Meds Current Medications Lactated Ringer's (Lr) 1,000 ml @ ud STK-MED ONCE IV Last administered on 03/20t 09:14; Start 03/20/17 at 09:14; Stop 03/20/17 at 09:15; Status DC Plan Impression Patient chart reviewed, patient interviewed and anesthestic plan with risks, benefits, and alternatives discussed, and informed consent obtained. ASA Physical Status: ASA2 Mod Systemic Disease Anesthetic Plan: GA Bene/Risks/Altern/Consents: Yes HP Complete Prior to Induction: Yes Willard Harvey MD Mar 20, 2017 09:52
--- NOTE | 2017-03-20 12:53 | PCM.SURGPO ---
Immediate Operative Note Date of Surgery: Mar 20, 2017 Pre Operative Diagnosis Left breast cancer Post Operative Diagnosis Left breast cancer Procedure Left breast excisional biopsy and sentinel lymph node biopsy Surgeon and Real Estate Appraiser Surgeon: Mahin Brantley MD Assistants: Viloet Sharp MD and Nabor Dang DO Findings Left breast mass and left sentinel lymph node Complications There were no periprocedural complications identified. Surgical Specimen Removed: Yes Specimen sent to Pathology: Yes Anesthetic Administered: GA Grafts, Implants: None Output, Estimated Blood Loss: 5 Blood Admin during surgery: No Violet Sharp MD Mar 20, 2017 12:53
--- NOTE | 2017-03-20 13:41 | PCM.ANEP1 ---
Post Anesthesia PACU Phase 1 Assessment Vital Signs Vital Signs Date Time Temp Pulse Resp B/P Pulse Ox O2 Delivery O2 Flow Rate FiO2 03/20/17 13:30 62 16 142/67 97 Nasal Cannula 3 03/20/17 13:25 62 15 128/63 96 Nasal Cannula 3 03/20/17 13:20 64 13 135/67 96 Nasal Cannula 4 03/20/17 13:15 36.1 64 16 130/60 95 Nasal Cannula 4 03/20/17 13:10 64 18 115/50 88 Room Air 03/20/17 13:05 64 15 109/54 97 Room Air 03/20/17 13:00 58 15 111/55 100 Simple Mask 8 03/20/17 12:55 56 15 98/53 97 Simple Mask 8 03/20/17 12:52 36.8 55 16 100/45 96 Simple Mask 8 03/20/17 09:14 36.8 64 16 136/78 96 Room Air Anesthetic Administered: GA Level of Alertness: Awake, talking NORIEGA's with Equal Strength: Yes Pain: No Nausea or Vomiting: No CV Function & Hydration Stable: Yes Airway Device: none Oxygen Delivery: Simple Mask Lungs: Clear to Auscultation, Normal Air Movement Dermatome Level: Full Sensation PACU Phase 2 Assessment Complications: No Follow up Care: No Patient Instructions Provided: N/A Willard Harvey MD Mar 20, 2017 13:41
--- NOTE | 2017-03-20 15:37 | DRSVH ---
SPECIMEN LEFT BREAST: 03/20/2017 CLINICAL: Breast specimen. Correlation is made to exams dated: 03/20/2017 mammogram, 01/22/2017 mammogram, and 01/17/2017 mammogra [facility]. A surgical specimen was imaged for the previous biopsy site located in the left breast at 2 o'clock middle depth. IMPRESSION: SPECIMEN The imaged specimen includes a biopsy clip and the distal portion of the localization wire. This exam was interpreted at Station ID: [id number]. Kavita Giron M.D. lk/:03/20/2017 15:16:54 Additional referring physicians: BUZZ LONG, Nick SESAY
--- NOTE | 2017-03-20 19:28 | OP ---
[address] [address] OPERATIVE REPORT PATIENT: NING WATTERS : 1945 MR#: [id number] ADMIT: 03/20/2017 JOB ID: [id number] DATE OF SURGERY: 03/20/2017 PREOPERATIVE DIAGNOSIS(ES): Left breast cancer. POSTOPERATIVE DIAGNOSIS(ES): Left breast cancer. PROCEDURE PERFORMED: Wire localized left partial mastectomy with left axillary sentinel lymph node biopsy. SURGEON: Mahin Brantley MD. TUBE LANCER: Violet Ballesteros MD, and Nabor Dang D.O. COMPLICATIONS: None. CONDITION OF THE PATIENT: Stable. INDICATIONS: The patient is a 71-year-old lady who was incidentally found to have a mass in her left breast when she was evaluated for possible viral pneumonia in November 2016. She then had a mammogram which showed a 2.7 cm irregular mass with indistinct margins in the left breast at one o'clock, posterior depth, and then had an ultrasound-guided biopsy which showed invasive ductal carcinoma, Winston score six of nine, ER positive, [place] positive, HER-2 negative. She then had a breast MRI which showed no MRI evidence of malignancy beyond this one tumor. After discussing the risks, benefits, and alternatives, she was brought to the operating room today for wire localized left partial mastectomy with left axillary sentinel lymph node biopsy. PROCEDURE DETAILS: She underwent wire localization earlier today and had radiocolloid injected into her breast and she was then brought to the operating room. The left breast and axilla were prepped and draped in the usual sterile fashion. Surgical time-out was undertaken using safety checklist, and all were in agreement. We began by making a circumferential incision along the wire and created skin flaps anteriorly and posteriorly around the wire and developed a spherical specimen extending posteriorly along the wire. After we did some dissection away from the skin, we were able to feel the tumor distinctly at the tip of the wire. We continued to develop these planes circumferentially using a combination of blunt and sharp dissection and eventually delivered the specimen, marking it, short superior, long lateral, and double stitch posteriorly. When we obtained a specimen radiograph, the clip and the tumor appeared to be well within the specimen but to be sure, we took an additional posterior margin, again marking it to orient it. We then directed our attention to the axilla but initially we were unable to get an obvious count, so I actually also injected blue dye in the circumareolar locations. After that, I explored the axilla, looking for radioactivity or blue dye. The 1st piece of tissue that I took out, thinking there was some activity in that ex vivo, did not have any background activity prompting me to send it off as nonsentinel lymph node-bearing tissue. I then was able to identify more laterally of the radioactivity with the probe showing up to 60 on the [employer] counter. I isolated this node with sharp dissection circumferentially and then demonstrated the ex vivo count to be 75 with the background in the axilla after that to be close to zero. All this was done through the partial mastectomy incision in the left breast outer quadrant and we ensured good hemostasis and placed clips on the partial mastectomy cavity and closed the wound in layers of 3-0 Vicryl followed by 4-0 Monocryl. Dermabond was applied as a dressing. Patient was recovered from anesthesia and was taken to the recovery room in a stable condition.
--- NOTE | 2017-03-21 08:58 | DRSVH ---
PROCEDURE: NM SENTINEL NODE INJECTION ONLY, LEFT BREAST RADIOPHARMACEUTICAL: 0.5 mCi Millipore filtered Tc-99m sulfur colloid. INDICATIONS: LEFT BREAST CANCER PROCEDURE: The indications, alternatives, benefits, risks, and complications of the procedure were explained to the patient. Written informed consent was obtained and placed in the chart. The area around the nip ple was prepped and draped in a sterile fashion. Tc-99m sulfur colloid was injected in the outer edg e of the areola in the left breast. No image was obtained. IMPRESSION: Administration of radiotracer into the left breast periareolar region for intra-operativ e sentinel lymph node localization. Dictated by: Magan Matthews M.D. on 03/21/2017 at 8:55 Approved by: Magan Matthews M.D. on 03/21/2017 at 8:56
--- NOTE | 2017-03-23 15:31 | PATH ---
SURGICAL PATHOLOGY Attending Physician:Mahin Brantley MD CASE STATUS: Signed Out PATIENT NAME: NING WATTERS PID: [id number] : 1945 DATE COLLECTED:03/20/2017 00:00 SPECIMEN: 1: Breast, Simple Mastectomy (lymph nodes submitted separately) 2: Breast Margin 3: [place] Lymph Node 4: Lymph Nodes, Regional Resection CLINICAL HISTORY: LEFT BREAST CANCER 1). LEFT BREAST UPPER OUTER QUADRANT, SHORT STITCH-SUPERIOR, LONG STITCH-LATERAL, DOUBLE STITCH-POSTERIOR 2). RE-EXCISION LEFT BREAST POSTERIOR MARGIN, SHORT STITCH-SUPERIOR, LONG STITCH-SUPERIOR, DOUBLE STITCH-NEW POSTERIOR MARGIN 3). LEFT AXILLARY LYMPH NODE #1 4). LEFT NON SENTINEL LYMPH NODE BEARING TISSUE FINAL DIAGNOSIS: 1.LEFT BREAST, UPPER OUTER QUADRANT, EXCISION WITH IMAGE-GUIDED LOCALIZATION: INVASIVE DUCTAL CARCINOMA. PLEASE SEE CAP SUMMARY DATA BELOW. 2.LEFT BREAST POSTERIOR MARGIN, RE-EXCISION: BENIGN ADIPOSE TISSUE. NO EVIDENCE OF ATYPICAL HYPERPLASIA, IN SITU, OR INVASIVE CARCINOMA. 3.LEFT AXILLARY LYMPH NODE #1, EXCISION: ONE LYMPH NODE NEGATIVE FOR METASTATIC CARCINOMA. 4.LEFT NONSENTINEL LYMPH NODE BEARING TISSUE, EXCISION: BENIGN ADIPOSE TISSUE. NO LYMPHOID TISSUE IDENTIFIED. CAP CANCER CASE SUMMARY INVASIVE CARCINOMA OF THE BREAST: PROCEDURE: Excision with image-guided localization. LYMPH NODE SAMPLING: [place] lymph node. SPECIMEN LATERALITY: Left. TUMOR SITE: Upper outer quadrant, 1 o' clock. TUMOR SIZE: 2.7 cm. HISTOLOGIC TYPE: Invasive mammary carcinoma of no special type (ductal, not otherwise specified). HISTOLOGIC GRADE: OTONIEL HISTOLOGIC SCORE Glandular/Tubular differentiation: Score 2 Nuclear Pleomorphism: Score 2 Mitotic Rate: Score 2 Overall Grade: Grade 2 TUMOR FOCALITY: Single focus of invasive carcinoma. DUCTAL CARCINOMA IN SITU: DCIS is present, negative for extensive intraductal component. Size (Extent) of DCIS: Two small foci of DCIS, both 1.5 mm in greatest dimension. Architectural patterns: Cribriform. Nuclear grade: Grade 1 (low). Necrosis: Present, focal. LOBULAR CARCINOMA IN SITU: Not identified. MARGINS INVASIVE CARCINOMA: Margins uninvolved by invasive carcinoma. Distance from margin: Carcinoma is 2 mm from the superior, inferior, and lateral margins. Carcinoma is 4 mm from medial margin. Carcinoma is greater than 1 cm from anterior and new posterior margin (part 2). DUCTAL CARCINOMA IN SITU: Margins uninvolved by DCIS. Distance from margin: 4 mm, inferior. Remaining margins are all greater than 1.0 cm from DCIS. LYMPH NODES Total number of lymph nodes examined: 1 Number of sentinel lymph nodes examined: 1 Lymph Node Involvement: Number of lymph nodes with macrometastases: 0 Number of lymph nodes with micrometastases: 0 Number of lymph nodes with isolated tumor cells: 0 Method of Evaluation of [place] Lymph Nodes: H&E, multiple levels. TREATMENT EFFECT: Response to Presurgical Therapy Breast: No known presurgical therapy. Lymph nodes: No known presurgical therapy. LYMPH-VASCULAR INVASION: Not identified. DERMAL LYMPH-VASCULAR INVASION: No skin present. PATHOLOGIC STAGING: AJCC, 7th ed., 2010 PRIMARY TUMOR: pT2 REGIONAL LYMPH NODES: pN0 (sn) ADDITIONAL PATHOLOGIC FINDINGS: Biopsy site changes. MICROCALCIFICATIONS: Present in invasive carcinoma. ANCILLARY STUDIES: Biomarkers Performed Previously on Case: [id number]. Estrogen Receptor (ER) Status (SP1): Positive, greater than 95%, strong. Progesterone Receptor (PgR) Status (1E2): Positive, 40%, moderate. HER2 (by immunohistochemistry) (4B5): Negative, Score 1+. [id number] NOTE: Tumor size is based on its presence in 9 sequential slices, 0.3mm each in thickness. This correlates with the radiologic reports. GROSS DESCRIPTION: The specimens are received in formalin, labeled with the patient's name, and sublabeled as the following: (1) left breast upper outer quadrant; (2) reexcision left breast posterior margin; (3) left axillary LN #1; (4) left non-sentinel lymph node bearing tissue. (1) The specimen consists of a piece of breast tissue (5.9 cm AP, 3.0 cm SI, 5.0 cm ML) with no overlying skin. The specimen is oriented with 3 black sutures (short-superior, long-lateral, double-posterior). A localization wire enters the central anterior aspect and ends in the center of the specimen. The specimen is serially sectioned AP into 21 slices with the anterior and posterior resection margins as slices #1 and #21 respectively. The breast tissue is fatty and contains a morocho-white solid firm irregular mass (2.3 x 2.2 x 1.7 cm) within slices #14-#21. The mass is 3.5 cm from the anterior, 0.1 cm from the posterior, 0.2 cm from the superior, 0.2 cm from inferior, 0.6 from the medial, and 0.2 cm from the lateral resection margins. No other nodules, masses or lesions are identified. Ink code: purple-anterior; yellow- posterior; black-superior; orange-inferior; green-medial; blue-lateral. Section code: (1A) anterior resection margin, perpendicularly sectioned, entirely submitted; (1B) slice #13, tissue adjacent to mass, bisected and submitted ML, entirely submitted; (1D) slice #14, bisected SI, superior half submitted; (1E-1F) slice #15, bisected and submitted ML, entirely submitted; (1G) slice #16, bisected ML, medial half submitted; (1H) slice #17, bisected ML, lateral half submitted; (1I-1J) slice #18, bisected and submitted ML, entirely submitted; (1K-1L) slice #19, bisected and submitted ML, entirely submitted; (1M) slice #20, entirely submitted; (1N-1O) posterior resection margin, perpendicularly sectioned, entirely submitted. (2) The specimen consists of a piece of breast tissue (1.0 cm AP, 3.2 cm SI, 4.4 cm ML) with no overlying skin. The specimen is oriented with 3 black sutures (short-superior, long-lateral, double-new posterior). No localization wire is present. The breast tissue is fatty with no nodules, masses, or lesions identified. Ink code: purple-anterior; yellow- posterior; black-superior; orange-inferior; green-medial; blue-lateral. Section code: (2A-2F) breast tissue, serially sectioned and submitted ML, each slice approximately 0.2 cm-0.3 cm thick. Specimen entirely submitted. (3) The specimen consists of a piece of adipose tissue (3.2 x 2.8 x 0.8 cm) containing a possible lymph node (1.5 x 0.5 x 0.5 cm). Section code: (3A) one lymph node, serially sectioned; (3B) remaining adipose tissue. Specimen entirely submitted. (4) The specimen consists of a piece of adipose tissue (4.5 x 3.3 x 1.2 cm). No lymph nodes are identified. Section code: (4A-4D) adipose tissue. Specimen entirely cemented. Note: Approximate total fixation time in formalin for all specimens-31 hours and 30 minutes calculated using a collection date of March 20, 2017 with no collection time given. 03/21/17 MICRO DESCRIPTION: See diagnosis. ICD-9 CODES: CPT CODES: 1: 57253 2: 44687 3: 41893 4: 37728 Electronically Signed Out Yvrose Downey MD [facility] [address], [place] [address] Technical component performed at [facility], [facility] [address], [place], [address]
== END | disposition home or self-care (01) ==
LOC: SAS 09:03
PROVIDERS: ATTEND Student in an Organized Health Care Education/Training Program
DX: C50.912 Malignant neoplasm of unspecified site of left female breast (principal); I10 Essential (primary) hypertension; E11.9 Type 2 diabetes mellitus without complications; J44.9 Chronic obstructive pulmonary disease, unspecified; F17.210 Nicotine dependence, cigarettes, uncomplicated; Z85.828 Personal history of other malignant neoplasm of skin; Z79.84 Long term (current) use of oral hypoglycemic drugs; Z79.82 Long term (current) use of aspirin; Z17.0 Estrogen receptor positive status [ER+]
CPT/HCPCS: 19301; 38525; 38792; 76098; A9541; J0690; J1170; J2250; J2704; J3010; J7120